=== PATIENT | female | born 1975 | race Caucasian/White ===

== ENCOUNTER 2019-08-25 13:39 | Emergency (ER) | payer OTHER, SELFPAY ==
--- NOTE | ~2019-08-25 | CT_ITS ---
EXAMINATION: CT brain wo con DATE: 08/25/2019 14:38 INDICATION: Drowsy, numbness in lips and cheeks. Loss of bladder control. Foggy feeling. Blurry vis ion. TECHNIQUE: Computed tomography (CT) of the head was performed without intravenous contrast. Sagittal and coronal reconstructions were performed. The mA was adjusted according to patient size. Iterative reconstruction technique was employed. The dose-length product was 605.33 mGy-cm. COMPARISON: None FINDINGS: No acute intracranial hemorrhage, acute infarction or abnormal extra axial fluid collection. Ventricl es are normal and symmetric. No mass/mass effect. The orbits, paranasal sinuses and mastoid air cells are normal. IMPRESSION: 1. Normal head CT. Reviewed, dictated and finalized at location A. IMPRESSION: 1. Normal head CT.
[2019-08-25 13:41] VITALS: BP 137/86; PULSE 110; RESP 19; TEMP 36.7; O2SAT 98
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
[2019-08-25 14:26] LABS: Hematocrit 44.2 % (37.0-47.0); Hemoglobin 14.7 g/dL (12.0-15.0); Mean Corpuscular HGB Conc 33.3 g/dl (32-36); Mean Corpuscular Hemoglobin 31.6 pg (26-34); Mean Corpuscular Volume 95.1 fl (80-100); Platelet Count Result 198 k/mm3 (150-375); Red Blood Count 4.65 M/mm3 (4.2-5.4); Red Cell Distribution Width 13.8 % (11.5-14.5); White Blood Count 12.4 K/mm3 (4.5-10.0)
[2019-08-25 14:31] LABS: INR 0.9; Prothrombin Time 12.2 Seconds (11.1-14.7)
[2019-08-25 14:37] LABS: Alanine Aminotransferase 17 U/L (4-35); Albumin Level 3.7 g/dL (3.5-5.1); Alkaline Phosphatase 70 U/L (38-126); Aspartate Amino Transferase 19 U/L (14-36); Bilirubin,Total 0.2 mg/dL (0.2-1.3); Blood Urea Nitrogen 7 mg/dL (7-17); Carbon Dioxide 19 mmol/L (22-30); Chloride 110 mmol/L (98-107); Estimated Glomerular Filt Rate > 60; Glucose 110 mg/dL (65-105); Potassium 2.8 mmol/L (3.4-5.0); Sodium 138 mmol/L (137-145)
[2019-08-25 14:50] LABS: Add Urine Microscopic? NO; Appearance Urine Clear (Clear); Bilirubin Urine Negative (Negative); Blood Urine Negative (Negative); Color Urine Yellow (Yellow); Glucose Urine UA Negative (Negative); Ketones Urine Negative (Negative); Leukocyte Esterase Ur Negative LEU/UL (Negative); Nitrate Urine Negative (Negative); Protein Urine Negative (Negative); Specific Grav Ur 1.013 (1.001-1.035); Urobilinogen Urine Negative mg/dL (<2.0)
[2019-08-25 15:00] LABS: Platelet Estimate Adequate (Adequate)
[2019-08-25 15:01] LABS: Atypical Lymphocytes Present; Band Neutrophils Percent 1 % (0-6); Lymphocytes Absolute Manual 4.96 K/mm3 (1.1-4.5); Lymphocytes Percent Manual 40 % (18-44); Monocytes Absolute Manual 0.37 K/mm3 (0.1-0.90); Monocytes Percent Manual 3 % (3-9); Neutrophils Absolute Manual 7.06 K/mm3 (1.7-7.2); Neutrophils Percent Manual 56 % (46-73); Total Cells Counted 100
--- NOTE | 2019-08-25 15:01 | ECG_ITS ---
Measurements Intervals [place] Rate: 87 P: 21 NE: 178 QRS: 19 QRSD: 93 T: -4 QT: 342 QTc: 412 Interpretive Statements SINUS RHYTHM INCOMPLETE RIGHT BUNDLE BRANCH BLOCK MINIMAL Q WAVES- HIGH LATERAL LEADS BORDERLINE ST-T WAVE ABNORMALITY- INFERIOR LEADS BORDERLINE ECG Electronically Signed On 08-25-2019 16:05:12 CDT by Eric Espinosa D.O.
[2019-08-25] MEDS: POTASSIUM CHLORIDE 20 MEQ PACKET (FOR LIQUID) 40 MEQ PO (15:05)
[2019-08-25 15:15] LABS: Ethanol < 10 mg/dL (<10)
--- NOTE | 2019-08-25 15:20 | PC.NURSE ---
pt does not like taste of orange potassium solution. md will change to tablets
[2019-08-25] MEDS: POTASSIUM CHLORIDE 20 MEQ TABLET 40 MEQ PO (15:28)
[2019-08-25 16:00] LABS: Amphetamine Screen Urine Negative (Negative); Barbiturate Screen Urine Negative (Negative); Benzodiazepines Screen Urine Negative (Negative); Cannabinoid Screen Urine Negative (Negative); Cocaine Screen Urine Negative (Negative); Methadone Screen Urine Negative (Negative); Opiate Screen Urine Negative (Negative); Phencyclidine Screen Urine Negative (Negative)
[2019-08-25 17:19] LABS: Potassium 3.6 mmol/L (3.4-5.0)
[2019-08-25 17:52] VITALS: BP 127/81; PULSE 95; RESP 16; O2SAT 100
== END 2019-08-25 17:55 | disposition home or self-care (01) ==
PROVIDERS: Emergency Provider Emergency Medicine; PCP Nurse Practitioner Psychiatric/Mental Health
DX: R20.2 Paresthesia of skin (principal); E87.6 Hypokalemia; R94.31 Abnormal electrocardiogram [ECG] [EKG]
CPT/HCPCS: 36415; 70450; 80053; 80307; 81003; 84132; 85025; 85610; 93005; 99284; A9270

== ENCOUNTER 2020-04-16 15:58 | Emergency (ER) | payer OTHER, MEDICAID, SELFPAY ==
--- NOTE | 2020-04-16 16:26 | ED.ALLEREA ---
HPI - Allergic Reaction General Chief complaint: Allergic Reaction Stated complaint: Allergic reaction to meds Time Seen by Provider: 04/16/20 16:26 Source: patient, family and RN notes reviewed Mode of arrival: ambulatory Limitations: no limitations History of Present Illness MD complaint: allergic reaction Known history of allergy to: Patient had her 2nd dose of methotrexate. She had some mild reaction after her 1st dose but the 2nd dose does made her arms extremely pruritic and she has had a significant amount of nausea with some occasional vomiting. She did not take anything at home. She was prescribed the methotrexate from her pastrycook's assistant for rheumatoid arthritis. Symptoms: itching and nausea Severity: severe Treatment prior to arrival: none Previous Allergic Reaction History: none Related Data Home Medications Medication Instructions Recorded Confirmed albuterol sulfate 90 mcg/actuation 1 inh INHALATION Q4H g 03/24/20 03/24/20 aerosol inhaler buspirone 5 mg tablet 5 mg PO BID tablet 03/24/20 03/24/20 fluticasone 250 mcg-salmeterol 50 1 inh INHALATION BID ea 03/24/20 03/24/20 mcg/dose blistr powdr for inhalation folic acid 1 mg tablet 1 mg PO DAILY tablet 03/24/20 03/24/20 methotrexate sodium 2.5 mg tablet 10 mg PO WEEKLY tablet 03/24/20 03/24/20 nortriptyline 50 mg capsule 50 mg PO DAILY cap 03/24/20 03/24/20 duloxetine [Cymbalta] 30 mg PO DAILY 04/16/20 04/16/20 Allergies Allergy/AdvReac Type Severity Reaction Status Date / Time amoxicillin Allergy Rash Verified 03/24/20 14:35 varenicline [From Chantix] AdvReac Intermediate skin Verified 03/24/20 14:35 peeling oxycodone [From Percocet] AdvReac Nausea and Verified 03/24/20 14:35 Vomiting sulfamethoxazole AdvReac Other Verified 03/24/20 14:35 [From Bactrim] trimethoprim [From Bactrim] AdvReac Other Verified 03/24/20 14:35 Review of Systems Review of Systems: All systems reviewed & are unremarkable except as noted in HPI and below ENT: Denies dysphagia Cardiovascular: Cardiovascular: Denies rapid heart rate Respiratory: Respiratory: Reports no additional respiratory complaints and Denies dyspnea PMFSH Past Medical History Medical History (Updated 04/16/20 @ 17:04 by Qasim Juares MD) Fibromyalgia Kidney stones Paresthesia Rheumatoid arthritis Surgical History Surgical History History of hysterectomy History of tonsillectomy Knee joint replacement by other means Social History Social History Smoking status: Current every day smoker Alcohol intake: former Gender identity (if verbalized by the patient): Female Exam Const: General: healthy appearing, no acute distress and alert Nutritional Appearance: well nourished and obese centrally obese Orientation/consciousness: patient oriented x3 HENMT: Head: normal to inspection Ears: external ears normal Eyes: Conjunctivae: conjunctivae normal Pupils: Equal, round and reactive pupils present EOM: EOMs intact bilaterally Neck: Neck: normal visual inspection Resp: Effort & Inspection: normal respiratory effort Auscultation: clear to auscultation bilaterally Cardio: Rate: regular rate Rhythm: regular rhythm GI: GI Palp: Yes Soft to palpation, No Guarding due to palpation present (GI) and No Rebound tenderness present Back/Spine/Pelvis: Cervical Spine: cervical ROM normal Thoracic/Lumbar Spine: thoraco-lumbar ROM normal Skin: General skin exam: normal color Rashes: no rashes Neuro: General: patient oriented x3, moves all extremities and no focal motor deficits Speech: normal speech Gait exam (Neuro): Normal gait present Extrem: General: normal to inspection and no clubbing, cyanosis or edema Psych: Appearance: grossly normal and well kempt Affect: normal affect and Anxious affect present Attitude: cooperative Thought content: Yes Normal
[2020-04-16 16:33] VITALS: BP 123/88; PULSE 96; RESP 18; TEMP 37; O2SAT 97
[2020-04-16] MEDS: diphenhydrAMINE HCl INJ 50 MG/ML VIAL IM (17:01)
[2020-04-16] MEDS: ONDANSETRON HCL ODT 4 MG TABLET PO (17:02)
== END 2020-04-16 17:34 | disposition home or self-care (01) ==
PROVIDERS: Emergency Provider Emergency Medicine; PCP Internal Medicine
DX: T50.905A Adverse effect of unspecified drugs, medicaments and biological substances, initial encounter (principal)
CPT/HCPCS: 96372; 99283; A9270; J1200

== ENCOUNTER 2024-05-11 12:56 | Outpatient (CLI) | payer OTHER, SELFPAY ==
--- OUTSIDE RECORDS SUMMARY | 2024-05-11 14:52 | XMS_ITS | Encounter Summary ---
Author Organization [facility] Address Counts include 234 beds at the [facility] [place] [address] Care Team Providers Care Commodity Supervisor Name Role Phone Bayron Coronado MD Unavailable [phone] Nancy Fournier BUSINESS TEACHER Primary Care Provider Unav ailable Jacobo Richardson MD Primary Care Provider Unava ilable None, Provider Primary Care Provider Unavaila ble None, Provider Primary Care Provider Unavaila ble Ifeanyi Henderson PA-C Primary Care Provider [phone] Genie Saunders AGRICULTURE MANAGER Unavailable [phone] Encounter Details Date Type Department Care Team (Late st Contact Info) Description 01/04/2018 Abstract [facility] Neuroscience [facility] [address] [phone] Victor Manuel Austin MD [address] [place] [id number] Social History Tobacco Use Types Packs/Day Years Used Date Smoking Tobacco: Every Day Cigarettes Smokeless Tobacco: Never Alcohol Use Standard Drinks/Week Comments No 0 (1 standard drink = 0.6 oz pur e alcohol) Comments Unknown Sex and Gender Information Value Date Recorded Sex Assigned at Female 05/09/2018 11:17 AM ASSISTANT PROFESSOR OF ART Legal Sex Female 12:28 PM CDT Gender Identity Female 05/09/2018 11:17 AM ASSISTANT PROFESSOR OF ART Sexual Orientation Straight 05/09/2018 11 :17 AM ASSISTANT PROFESSOR OF ART 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 Not on file Not on file documented as of this encounter Plan of Treatment Not on file documented as of this encounter Visit Diagnoses Not on filedocumented in this encounter Administered Medications Administered Medications Medication Order MAR Action Action Date Dose Rate Site Tuberculin Given 04/02/2007 00:00 ASSISTANT PROFESSOR OF ART Tuberculin Given 03/21/2011 00:00 ASSISTANT PROFESSOR OF ART Tuberculin Given 03/28/2011 00:00 ASSISTANT PROFESSOR OF ART documented in this encounter Additional Health Concerns Infection Onset Date Last Indicated Resolved Time COVID-19 Rule Out 12/18/2019 12/18/2019 12/19/2019 4:21 PM CDT COVID-19 Rule Out 12/28/2019 12/28/2019 12/29/2019 4:01 PM CDT COVID-19 Rule Out 10/23/2020 10/23/2020 01/23/2021 7:39 PM ASSISTANT PROFESSOR OF ART COVID-19 Rule Out 10/23/2020 10/23/2020 01/23/2021 7:40 PM ASSISTANT PROFESSOR OF ART COVID-19 Rule Out 10/24/2020 10/24/2020 10/25/2020 12:47 AM CDT COVID-19 Rule Out 12/11/2021 12/11/2021 12/11/2021 7:27 PM CDT COVID-19 Rule Out 05/07/2022 05/07/2022 05/07/2022 1:49 PM ASSISTANT PROFESSOR OF ART COVID-19 Rule Out 04/19/2023 04/19/2023 04/19/2023 9:15 AM ASSISTANT PROFESSOR OF ART COVID-19 Confirmed 04/19/2023 04/19/2023 12:32 AM CDT COVID-19 Rule Out 03/07/2024 03/07/2024 03/07/2024 3:08 PM ASSISTANT PROFESSOR OF ART documented as of this encounter Care Teams Commodity Supervisor Relationship Specialty Start Date End Date Nancy Fournier NP Three [facility]. [address] [place] [address] PCP - General NURSE PRACTITIONER 05/19/18 03/24/20 Jacobo Richardson MD [facility] [address] [place] [address] PCP - General INTERNAL MEDICINE 03/25/20 07/05/21 None, MD [place] PCP - General 07/06/21 07/06/21 None, MD [place] PCP - General 07/30/21 10/12/21 Ifeanyi Henderson PA-C [address] [place] [address] [address] [place], [place] [id number] PCP - General PHYSICIAN DOOR PULLER 10/13/21 Bayron Coronado MD Three [facility]. [address] [address] [place] [employer] CARDIOVASCULAR DISEASE 08/03/15 Genie Saunders FNP [address] [phone] NURSE PRACTITIONER 03/16/24 documented as of this encounter
--- OUTSIDE RECORDS SUMMARY | 2024-05-11 14:52 | XMS_ITS | Encounter Summary ---
Author Organization [facility] Address [facility] [place] [address] Care Team Providers Care Bisque Brusher Name Role Phone Bayron Coronado MD Unavailable [phone] Nancy Fournier EKG MONITOR Primary Care Provider Unav ailable Jacobo Richardson MD Primary Care Provider Unava ilable None, Provider Primary Care Provider Unavaila ble None, Provider Primary Care Provider Unavaila ble Ifeanyi Henderson PA-C Primary Care Provider [phone] Genie Saunders DOG WARDEN Unavailable [phone] Encounter Details Date Type Department Care Team (Late st Contact Info) Description 11/10/2015 [facility] AT [address] [address] Marina Black MA Social History Tobacco Use Types Packs/Day Years Used Date Smoking Tobacco: Every Day Cigarettes Smokeless Tobacco: Never Alcohol Use Standard Drinks/Week Comments No 0 (1 standard drink = 0.6 oz pur e alcohol) Comments Unknown Sex and Gender Information Value Date Recorded Sex Assigned at Female 05/09/2018 11:17 AM FIG WASHER Legal Sex Female 12:28 PM CDT Gender Identity Female 05/09/2018 11:17 AM FIG WASHER Sexual Orientation Straight 05/09/2018 11 :17 AM FIG WASHER 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 Not on file Not on file documented as of this encounter Plan of Treatment Not on file documented as of this encounter Procedures Procedure Name Priority Date/Time Associated Diagnosis Comments CBC (OUTSIDE LAB) Routine 12/12/2015 COMPREHENSIVE METABOLIC PANEL Routine 12/12/2015 CK (CPK) Routine 12/12/2015 THYROID STIM HORMONE TSH Routine 12/07/2015 CBC (OUTSIDE LAB) Routine 10/29/2015 BASIC METABOLIC PANEL Routine 10/29/2015 LIPID PANEL Routine 03/16/2014 documented in this encounter Results * CK (CPK) (12/12/2015) CPK 43 12/12/2015 us Doc [facility] Abstract LABORATORY Edited Resul t - Final * COMPREHENSIVE METABOLIC PANEL (12/12/2015) SODIUM S/P/B 138 POTASSIUM S/P/B 4.0 CO2 22 CHLORIDE S/P/B 110 GLUCOSE 102 CALCIUM S/P/B 8.5 BUN 5 CREATININE S/P/B 0.83 EGFR NON-AFR. AMER. >60 ALKALINE PHOSPHATASE S/P/B 62 ALT 20 AST 21 BILIRUBIN TOTAL S/P/B 0.3 ALBUMIN S/P/B 3.6 3.5 - 5.0 TOTAL PROTEIN S/P/B 6.3 12/12/2015 us Doc [facility] Abstract LABORATORY Final Result * CBC (OUTSIDE LAB) (12/12/2015) WBC 7.0 HGB 14.3 HCT 41.5 PLT 165 12/12/2015 us Doc [facility] Abstract LAB-OUTSIDE/ABSTRACTED Final Result * THYROID STIM HORMONE, TSH (12/07/2015) TSH 1.29 12/07/2015 us Doc [facility] Abstract LABORATORY Edited Resul t - Final * BASIC METABOLIC PANEL (10/29/2015) SODIUM S/P/B 139 POTASSIUM S/P/B 3.7 CO2 23 CHLORIDE S/P/B 107 GLUCOSE 76 CALCIUM S/P/B 8.9 BUN 8 CREATININE S/P/B 0.97 EGFR NON-AFR. AMER. >60 10/29/2015 us Doc [facility] Abstract LABORATORY Final Result * CBC (OUTSIDE LAB) (10/29/2015) WBC 5.7 HGB 14.0 HCT 41.5 PLT 161 10/29/2015 us Doc [facility] Abstract LAB-OUTSIDE/ABSTRACTED Final Result * LIPID PANEL (03/16/2014) CHOLESTEROL 140 HDL 44 TRIGLYCERIDES 93 LDL (CALCULATED) 77 03/16/2014 us Doc [facility] Abstract LABORATORY Final Result documented in this encounter Visit Diagnoses Not on filedocumented in this encounter Additional Health Concerns Infection Onset Date Last Indicated Resolved Time COVID-19 Rule Out 12/18/2019 12/18/2019 12/19/2019 4:21 PM CDT COVID-19 Rule Out 12/28/2019 12/28/2019 12/29/2019 4:01 PM CDT COVID-19 Rule Out 10/23/2020 10/23/2020 01/23/2021 7:39 PM FIG WASHER COVID-19 Rule Out 10/23/2020 10/23/2020 01/23/2021 7:40 PM FIG WASHER COVID-19 Rule Out 10/24/2020 10/24/2020 10/25/2020 12:47 AM CDT COVID-19 Rule Out 12/11/2021 12/11/2021 12/11/2021 7:27 PM CDT COVID-19 Rule Out 05/07/2022 05/07/2022 05/07/2022 1:49 PM FIG WASHER COVID-19 Rule Out 04/19/2023 04/19/2023 04/19/2023 9:15 AM FIG WASHER COVID-19 Confirmed 04/19/2023 04/19/2023 12:32 AM CDT COVID-19 Rule Out 03/07/2024 03/07/2024 03/07/2024 3:08 PM FIG WASHER documented as of this encounter Care Teams Bisque Brusher Relationship Specialty Start Date End Date Nancy Fournier NP Three [facility]. [address] [address] PCP - General NURSE PRACTITIONER 05/19/18 03/24/20 Jacobo Richardson MD Three [facility]. [address] [address] PCP - General INTERNAL MEDICINE 03/25/20 07/05/21 None, Provider, PCP - General 07/06/21 07/06/21 None, Provider, PCP - General 07/30/21 10/12/21 Ifeanyi Henderson PA-C [address] [place] [address] PCP - General PHYSICIAN TRACTOR CRANE ENGINEER 10/13/21 Bayron Coronado MD Three [facility]. [address] [address] [place] CARDIOVASCULAR DISEASE 08/03/15 Genie Saunders FNP [address] [phone] NURSE PRACTITIONER 03/16/24 documented as of this encounter
--- OUTSIDE RECORDS SUMMARY | 2024-05-11 14:52 | XMS_ITS | Referral Summary ---
Author Organization [facility] Address [address] [place] [address] Care Team Providers Care Stamp Analyst Name Role Phone Dylan Gunter MD, Jacobo Germain Primary Care Provider Allergies Active Allergy Reactions Criticality Noted Date Comments Amoxicillin Rash Reaction: Rash, Baclofen Mental status changes,Dizziness Medium 10/06/2019 Cholecalciferol (Vitamin D3) Mental status changes,Dizziness Medium 10/06/2019 Dexamethasone Mental status changes,Dizziness Medium 10/06/2019 Leflunomide Mental status changes,Dizziness Medium 10/06/2019 Levofloxacin Rash,Redness Medium 06/08/2019 Redness and warmth apparent at IV site within first 10 min of infusion. Redness and warmth apparent at IV site within first 10 min of infusion. Methotrexate Itching Medium 05/06/2020 Oxycodone-Acetaminophen Vomiting Reaction: Vomiting, Propoxyphene-Acetaminophe n Vomiting Reaction: Vomiting, Sulfamethoxazole-Trimetho prim Medications albuterol HFA (PROVENTIL HFA,VENTOLIN HFA,PROAIR HFA) 90 mcg/actuation inhaler INHALE 2 PUFFS BY MOUTH EVERY 4 HOURS NEEDED 03/27/2020 Active biotin 10,000 mcg capsule Take 1 capsule by mouth daily Active hydrOXYzine (ATARAX) 25 mg tablet daily 11/10/2020 Active nicotine (NICODERM CQ) 21 mg APPLY 1 PATCH ONCE DAILY DIRECTED 08/18/2020 Active Wixela Inhub 500-50 mcg/dose diskus inhaler 11/14/2020 Acti ve hydrOXYchloroQU INE (PLAQUENIL) 200 mg tablet Take 200 mg by mouth daily 03/06/2021 Active sertraline (ZOLOFT) 50 mg tablet Take 50 mg by mouth daily Active QUEtiapine (SEROquel) 100 mg tablet Take 100 mg by mouth nightly Active alpha lipoic acid 600 mg capsule Take 1 capsule (600 mcg total) by mouth 2 (two) times a day 60 capsule 3 05/23/2021 Active busPIRone (BUSPAR) 10 mg tablet Take 10 mg by mouth 3 (three) times a day 07/06/[address] (CYMBALTA) 60 mg capsule Take by mouth daily 06/19/2021 Active sertraline (ZOLOFT) 100 mg tablet Take 100 mg by mouth daily 07/26/2021 Active topiramate (TOPAMAX) 100 mg tablet TAKE 1 TABLET BY MOUTH TWICE A DAY-NEEDS APPT 07/26/2021 Active pregabalin (LYRICA) 100 mg capsule Take 1 capsule (100 mg total) by mouth 2 (two) times a day 60 capsule 3 08/13/2021 Active Active Problems Problem Noted Date Diagnosed Date Small fiber neuropathy 07/05/2020 Positive antinuclear antibody 04/24/2016 Fibromyalgia 04/24/2016 Hidradenitis suppurativa 02/09/2010 Nicotine dependence 11/23/2009 Carbuncle of axilla 11/01/2009 Immunizations Immunization Administration Dates Next Due PPD TEST 11/14/2009 Social History Tobacco Use Types Packs/Day Years Used Date Smoking Tobacco: Every Day Cigarettes 0.1 30 Smokeless Tobacco: Never Tobacco Cessation:Ready to Q uit: Yes; Counseling Given: Yes AUDIT-C Answer Date Recorded Q1: How often do you have a drink containing alcohol? Never 08/08/2021 Q2: How many drinks containi ng alcohol do you have on a typical day when you are drinking? Patient does not drink Q3: How often do you have si x or more drinks on one occasion? Never 08/08/2021 Comments No Sex and Gender Information Value Date Recorded Sex Assigned at Not on file Legal Sex Female 5:19 AM SLIMER Gender Identity Female 08/10/2021 3:51 PM CDT Sexual Orientation Straight 08/10/2021 3: 51 PM CDT Last Filed Vital Signs Vital Sign Reading Time Taken Comments Blood Pressure 130/78 03/17/2021 12:37 PM SLIMER Pulse 90 03/17/2021 12:37 PM SLIMER Temperature 36.6 C (97.8 F) 03/17/2021 10:18 AM SLIMER Respiratory Rate 22 03/17/2021 12:37 PM SLIMER Oxygen Saturation 100% 03/17/2021 12:37 PM SLIMER Inhaled Oxygen Concentration - - Weight 100.5 kg (221 lb 8 oz) 03/17/2021 10:18 A M SLIMER Height 167.6 cm (5' 6 ) 03/17/2021 10:18 AM SLIMER Body Mass Index 35.75 03/17/2021 10:18 AM SLIMER Plan of Treatment Not on file Goals Goal Patient Goal Type Associated Problems Recent Progress Patient-Stated? Author CCM Chronic Pain Care Plan Chronic Care Management No change(08/08 7:19 AM CDT) No Colleen Esteban RN Note: Problem: Chronic Pain Goals: 1. Minimize further functional decline 2. Maximize quality of life 3. Control pain Strategies: - Activity/exercise program recommendation - Conservative stepwise pain medicine strategy with multi-disciplinary approach - Recommend healthy lifestyle strategies and compensatory methods as needed Insurance [facility] Care Teams Stamp Analyst Relationship Specialty Start Date End Date Jacobo Richardson Jr., MD [address] [place] [id number] PCP - General Geriatric Medicine 05/05/20
--- OUTSIDE RECORDS SUMMARY | 2024-05-11 14:52 | XMS_ITS | Encounter Summary ---
Author Organization [facility] System Address [facility] [place] [address] Care Team Providers Care Hogshead Stripper Name Role Phone Bayron Coronado MD Unavailable [phone] Nancy Fournier CAMPUS WELLNESS COORDINATOR Primary Care Provider Unav ailable Jacobo Richardson MD Primary Care Provider Unava ilable None, Provider Primary Care Provider Unavaila ble None, Provider Primary Care Provider Unavaila ble Ifeanyi Henderson PA-C Primary Care Provider [phone] Genie Saunders MANAGER FLIGHT Unavailable [phone] Encounter Details Date Type Department Care Team (Late st Contact Info) Description 09/21/2016 Abstract [facility] AT [address] [address] Marnia Black MA Social History Tobacco Use Types Packs/Day Years Used Date Smoking Tobacco: Every Day Cigarettes Smokeless Tobacco: Never Alcohol Use Standard Drinks/Week Comments No 0 (1 standard drink = 0.6 oz pur e alcohol) Comments Unknown Sex and Gender Information Value Date Recorded Sex Assigned at Female 05/09/2018 11:17 AM COMMISSION AGENT LIVESTOCK Legal Sex Female 12:28 PM CDT Gender Identity Female 05/09/2018 11:17 AM COMMISSION AGENT LIVESTOCK Sexual Orientation Straight 05/09/2018 11 :17 AM COMMISSION AGENT LIVESTOCK 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 Not on file Not on file documented as of this encounter Plan of Treatment Not on file documented as of this encounter Procedures Procedure Name Priority Date/Time Associated Diagnosis Comments CBC (OUTSIDE LAB) Routine 09/18/2016 COMPREHENSIVE METABOLIC PANEL Routine 09/18/2016 CK (CPK) Routine 09/18/2016 documented in this encounter Results * CK (CPK) (09/18/2016) CPK 139 09/18/2016 us Doc [facility] Abstract LABORATORY Final Result * COMPREHENSIVE METABOLIC PANEL (09/18/2016) SODIUM S/P/B 141 POTASSIUM S/P/B 3.8 CO2 25 CHLORIDE S/P/B 109 GLUCOSE 89 CALCIUM S/P/B 8.8 BUN 6 CREATININE S/P/B 0.82 0.5 - 1.0 EGFR NON-AFR. AMER. >60 <=90 ALKALINE PHOSPHATASE S/P/B 68 ALT 14 AST 16 BILIRUBIN TOTAL S/P/B 0.5 ALBUMIN S/P/B 3.7 3.5 - 5.0 TOTAL PROTEIN S/P/B 6.9 09/18/2016 us Doc [facility] Abstract LABORATORY Final Result * CBC (OUTSIDE LAB) (09/18/2016) WBC 10.6 HGB 15.4 HCT 43.5 PLT 190 09/18/2016 us Doc [facility] Abstract LAB-OUTSIDE/ABSTRACTED Edite d Result - Final documented in this encounter Visit Diagnoses Not on filedocumented in this encounter Additional Health Concerns Infection Onset Date Last Indicated Resolved Time COVID-19 Rule Out 12/18/2019 12/18/2019 12/19/2019 4:21 PM CDT COVID-19 Rule Out 12/28/2019 12/28/2019 12/29/2019 4:01 PM CDT COVID-19 Rule Out 10/23/2020 10/23/2020 01/23/2021 7:39 PM COMMISSION AGENT LIVESTOCK COVID-19 Rule Out 10/23/2020 10/23/2020 01/23/2021 7:40 PM COMMISSION AGENT LIVESTOCK COVID-19 Rule Out 10/24/2020 10/24/2020 10/25/2020 12:47 AM CDT COVID-19 Rule Out 12/11/2021 12/11/2021 12/11/2021 7:27 PM CDT COVID-19 Rule Out 05/07/2022 05/07/2022 05/07/2022 1:49 PM COMMISSION AGENT LIVESTOCK COVID-19 Rule Out 04/19/2023 04/19/2023 04/19/2023 9:15 AM COMMISSION AGENT LIVESTOCK COVID-19 Confirmed 04/19/2023 04/19/2023 12:32 AM CDT COVID-19 Rule Out 03/07/2024 03/07/2024 03/07/2024 3:08 PM COMMISSION AGENT LIVESTOCK documented as of this encounter Care Teams Hogshead Stripper Relationship Specialty Start Date End Date Nancy Fournier NP [facility]. [address] [address] PCP - General NURSE PRACTITIONER 05/19/18 03/24/20 Jacobo Richardson MD Three [facility]. [facility] [address] [place] [address] PCP - General INTERNAL MEDICINE 03/25/20 07/05/21 None, Provider, PCP - General 07/06/21 07/06/21 None, Provider, PCP - General 07/30/21 10/12/21 Ifeanyi Henderson PA-C [facility] [place] [address] PCP - General PHYSICIAN CIS COORDINATOR 10/13/21 Bayron Coronado MD [facility]. [facility] [address] [place] [address] [place] Doffer CARDIOVASCULAR DISEASE 08/03/15 Genie Saunders FNP [address] [id number] NURSE PRACTITIONER 03/16/24 documented as of this encounter
--- OUTSIDE RECORDS SUMMARY | 2024-05-11 14:52 | XMS_ITS | Encounter Summary ---
Author Organization [facility] System Address [facility] [place] [address] Care Team Providers Care Elevator Repairer Helper Name Role Phone Bayron Coronado MD Unavailable [phone] Nancy Fournier MAINTENANCE ENGINEER OIL FIELD Primary Care Provider Unav ailable Jacobo Richardson MD Primary Care Provider Unava ilable None, Provider Primary Care Provider Unavaila ble None, Provider Primary Care Provider Unavaila ble Ifeanyi Henderson PA-C Primary Care Provider [phone] Genie Saunders BIOLOGY PROFESSOR Unavailable [phone] Encounter Details Date Type Department Care Team (Late st Contact Info) Description 07/31/2016 Abstract [facility] CONVERSION [address] [address] , Generic Conversion, Social History Tobacco Use Types Packs/Day Years Used Date Smoking Tobacco: Every Day Cigarettes Smokeless Tobacco: Never Alcohol Use Standard Drinks/Week Comments No 0 (1 standard drink = 0.6 oz pur e alcohol) Comments Unknown Sex and Gender Information Value Date Recorded Sex Assigned at Female 05/09/2018 11:17 AM CAPSULE MACHINE OPERATOR Legal Sex Female 12:28 PM CDT Gender Identity Female 05/09/2018 11:17 AM CAPSULE MACHINE OPERATOR Sexual Orientation Straight 05/09/2018 11 :17 AM CAPSULE MACHINE OPERATOR Occupation Industry Job Start Date Job End [...] Rule Out 10/23/2020 10/23/2020 01/23/2021 7:39 PM CAPSULE MACHINE OPERATOR COVID-19 Rule Out 10/23/2020 10/23/2020 01/23/2021 7:40 PM CAPSULE MACHINE OPERATOR COVID-19 Rule Out 10/24/2020 10/24/2020 10/25/2020 12:47 AM CDT COVID-19 Rule Out 12/11/2021 12/11/2021 12/11/2021 7:27 PM CDT COVID-19 Rule Out 05/07/2022 05/07/2022 05/07/2022 1:49 PM CAPSULE MACHINE OPERATOR COVID-19 Rule Out 04/19/2023 04/19/2023 04/19/2023 9:15 AM CAPSULE MACHINE OPERATOR COVID-19 Confirmed 04/19/2023 04/19/2023 12:32 AM CDT COVID-19 Rule Out 03/07/2024 03/07/2024 03/07/2024 3:08 PM CAPSULE MACHINE OPERATOR documented as of this encounter Care Teams Elevator Repairer Helper Relationship Specialty Start Date End Date Nancy Fournier NP [address] [address] PCP - General NURSE PRACTITIONER 05/19/18 03/24/20 Jacobo Richardson MD [address] [address] PCP - General INTERNAL MEDICINE 03/25/20 07/05/21 None, Provider, PCP - General 07/06/21 07/06/21 None, Provider, PCP - General 07/30/21 10/12/21 Ifeanyi Henderson PA-C [address] [place] [address] PCP - General PHYSICIAN WATER TAXI BOAT MATE 10/13/21 Bayron Coronado MD [facility]. [address] [place] [address] [place] Grinder Operator CARDIOVASCULAR DISEASE 08/03/15 Genie Saunders FNP [address] [facility] [address] [place] [address] NURSE PRACTITIONER 03/16/24 documented as of this encounter
--- OUTSIDE RECORDS SUMMARY | 2024-05-11 14:52 | XMS_ITS | Encounter Summary ---
Author Organization [facility] System Address [facility] [place] [address] Care Team Providers Care Lining Stuffer Name Role Phone Bayron Coronado MD Unavailable [phone] Nancy Fournier PUMPER GAGER APPRENTICE Primary Care Provider Unav ailable Jacobo Richardson MD Primary Care Provider Unava ilable None, Provider Primary Care Provider Unavaila ble None, Provider Primary Care Provider Unavaila ble Ifeanyi Henderson PA-C Primary Care Provider [phone] Genie Saunders RECYCLABLE PRODUCTS SORTER Unavailable [phone] Encounter Details Date Type Department Care Team (Late st Contact Info) Description 11/19/2019 Personal Capital Message Enc [facility] Family & Internal Medicine [address] [address] Scientific Intake, [facility] Provider Medication Information Social History Tobacco Use Types Packs/Day Years Used Date Smoking Tobacco: Every Day Cigarettes 1 15 Smokeless Tobacco: Never Comments:Verbalized understa nding of smoking cessation. Recommended she quit. 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 No / Unsure 11/16/2019 8:37 AM CDT documented as of this encounter Plan of Treatment Not on file documented as of this encounter Visit Diagnoses Not on filedocumented in this encounter Additional Health Concerns Infection Onset Date Last Indicated Resolved Time COVID-19 Rule Out 12/18/2019 12/18/2019 12/19/2019 4:21 PM CDT COVID-19 Rule Out 12/28/2019 12/28/2019 12/29/2019 4:01 PM CDT COVID-19 Rule Out 10/23/2020 10/23/2020 01/23/2021 7:39 PM LOAN OPERATIONS MANAGER COVID-19 Rule Out 10/23/2020 10/23/2020 01/23/2021 7:40 PM LOAN OPERATIONS MANAGER COVID-19 Rule Out 10/24/2020 10/24/2020 10/25/2020 12:47 AM CDT COVID-19 Rule Out 12/11/2021 12/11/2021 12/11/2021 7:27 PM CDT COVID-19 Rule Out 05/07/2022 05/07/2022 05/07/2022 1:49 PM LOAN OPERATIONS MANAGER COVID-19 Rule Out 04/19/2023 04/19/2023 04/19/2023 9:15 AM LOAN OPERATIONS MANAGER COVID-19 Confirmed 04/19/2023 04/19/2023 12:32 AM CDT COVID-19 Rule Out 03/07/2024 03/07/2024 03/07/2024 3:08 PM LOAN OPERATIONS MANAGER documented as of this encounter Care Teams Lining Stuffer Relationship Specialty Start Date End Date Nancy Fournier NP Three [facility]. [facility] [address] [place] [address] PCP - General NURSE PRACTITIONER 05/19/18 03/24/20 Jacobo Richardson MD Three [facility]. [address] [place] [address] PCP - General INTERNAL MEDICINE 03/25/20 07/05/21 None, Provider, PCP - General 07/06/21 07/06/21 None, Provider, MD PCP - General 07/30/21 10/12/21 Ifeanyi Henderson PA-C [address] [place] [address] PCP - General PHYSICIAN WELT RANDER 10/13/21 Bayron Coronado MD [address] [address] [place] Truck Supervisor CARDIOVASCULAR DISEASE 08/03/15 Genie Saunders FNP [address] [address] NURSE PRACTITIONER 03/16/24 documented as of this encounter
--- OUTSIDE RECORDS SUMMARY | 2024-05-11 14:52 | XMS_ITS | Encounter Summary ---
Author Organization [facility] Address [facility] [place] [address] Care Team Providers Care Practice Office Associate Name Role Phone Bayron Coronado MD Unavailable [phone] Nancy Fournier CHIEF MEDICAL DIRECTOR Primary Care Provider Unav ailable Jacobo Richardson MD Primary Care Provider Unava ilable None, Provider Primary Care Provider Unavaila ble None, Provider Primary Care Provider Unavaila ble Ifeanyi Henderson PA-C Primary Care Provider [phone] Genie Saunders CIGARETTE MAKING EXAMINER Unavailable [phone] Encounter Details Date Type Department Care Team (Late st Contact Info) Description 07/15/2014 Abstract [facility] CONVERSION [address] [place] [address] , Generic Conversion, Social History Tobacco Use Types Packs/Day Years Used Date Smoking Tobacco: Never Assessed Comments Unknown Sex and Gender Information Value Date Recorded Sex Assigned at Female 05/09/2018 11:17 AM SITE MANAGER Legal Sex Female 12:28 PM CDT Gender Identity Female 05/09/2018 11:17 AM SITE MANAGER Sexual Orientation Straight 05/09/2018 11 :17 AM SITE MANAGER documented as of this encounter Plan of Treatment Not on file documented as of this encounter Visit Diagnoses Not on filedocumented in this encounter Additional Health Concerns Infection Onset Date Last Indicated Resolved Time COVID-19 Rule Out 12/18/2019 12/18/2019 12/19/2019 4:21 PM CDT COVID-19 Rule Out 12/28/2019 12/28/2019 12/29/2019 4:01 PM CDT COVID-19 Rule Out 10/23/2020 10/23/2020 01/23/2021 7:39 PM SITE MANAGER COVID-19 Rule Out 10/23/2020 10/23/2020 01/23/2021 7:40 PM SITE MANAGER COVID-19 Rule Out 10/24/2020 10/24/2020 10/25/2020 12:47 AM CDT COVID-19 Rule Out 12/11/2021 12/11/2021 12/11/2021 7:27 PM CDT COVID-19 Rule Out 05/07/2022 05/07/2022 05/07/2022 1:49 PM SITE MANAGER COVID-19 Rule Out 04/19/2023 04/19/2023 04/19/2023 9:15 AM SITE MANAGER COVID-19 Confirmed 04/19/2023 04/19/2023 12:32 AM CDT COVID-19 Rule Out 03/07/2024 03/07/2024 03/07/2024 3:08 PM SITE MANAGER documented as of this encounter Care Teams Practice Office Associate Relationship Specialty Start Date End Date Nancy Fournier NP [facility]. [address] [address] PCP - General NURSE PRACTITIONER 05/19/18 03/24/20 Jacobo Richardson MD [facility]. [facility] [address] [place] [address] PCP - General INTERNAL MEDICINE 03/25/20 07/05/21 None, Provider, PCP - General 07/06/21 07/06/21 None, Provider, PCP - General 07/30/21 10/12/21 Ifeanyi Henderson PA-C [address] [place] [address] PCP - General PHYSICIAN RETAIL OPERATIONS SPECIALIST 10/13/21 Bayron Coronado MD [facility]. [facility] [address] [place] [address] Wing[place] Gardener CARDIOVASCULAR DISEASE 08/03/15 Genie Saunders FNP [address] [address] NURSE PRACTITIONER 03/16/24 documented as of this encounter
--- OUTSIDE RECORDS SUMMARY | 2024-05-11 14:52 | XMS_ITS | Encounter Summary ---
Author Organization [facility] Address [facility] [place] [address] Care Team Providers Care Sausage Mixer Name Role Phone Bayron Coronado MD Unavailable [phone] Nancy Fournier PIE DOUGH ROLLER Primary Care Provider Unav ailable Jacobo Richardson MD Primary Care Provider Unava ilable None, Provider Primary Care Provider Unavaila ble None, Provider Primary Care Provider Unavaila ble Ifeanyi Henderson PA-C Primary Care Provider [phone] Genie Saunders LOCK PLATER Unavailable [phone] Encounter Details Date Type Department Care Team (Late st Contact Info) Description 05/18/2017 Abstract [facility] CONVERSION [address] [place] [address] , Generic Conversion, Social History Tobacco Use Types Packs/Day Years Used Date Smoking Tobacco: Every Day Cigarettes Smokeless Tobacco: Never Alcohol Use Standard Drinks/Week Comments No 0 (1 standard drink = 0.6 oz pur e alcohol) Comments Unknown Sex and Gender Information Value Date Recorded Sex Assigned at Female 05/09/2018 11:17 AM PROPOSAL MANAGER Legal Sex Female 12:28 PM CDT Gender Identity Female 05/09/2018 11:17 AM PROPOSAL MANAGER Sexual Orientation Straight 05/09/2018 11 :17 AM PROPOSAL MANAGER Occupation Industry Job Start Date Job [...] Rule Out 10/23/2020 10/23/2020 01/23/2021 7:39 PM PROPOSAL MANAGER COVID-19 Rule Out 10/23/2020 10/23/2020 01/23/2021 7:40 PM PROPOSAL MANAGER COVID-19 Rule Out 10/24/2020 10/24/2020 10/25/2020 12:47 AM CDT COVID-19 Rule Out 12/11/2021 12/11/2021 12/11/2021 7:27 PM CDT COVID-19 Rule Out 05/07/2022 05/07/2022 05/07/2022 1:49 PM PROPOSAL MANAGER COVID-19 Rule Out 04/19/2023 04/19/2023 04/19/2023 9:15 AM PROPOSAL MANAGER COVID-19 Confirmed 04/19/2023 04/19/2023 12:32 AM CDT COVID-19 Rule Out 03/07/2024 03/07/2024 03/07/2024 3:08 PM PROPOSAL MANAGER documented as of this encounter Care Teams Sausage Mixer Relationship Specialty Start Date End Date Nancy Fournier NP [address] [address] PCP - General NURSE PRACTITIONER 05/19/18 03/24/20 Jacobo Richardson MD [address] [address] PCP - General INTERNAL MEDICINE 03/25/20 07/05/21 None, Provider, PCP - General 07/06/21 07/06/21 None, Provider, PCP - General 07/30/21 10/12/21 Ifeanyi Henderson PA-C [address] [place] [address] PCP - General PHYSICIAN SUPERVISOR EDGING 10/13/21 Bayron Coronado MD [facility]. [place] [place] [address] [place] Aircraft Charter Dispatcher CARDIOVASCULAR DISEASE 08/03/15 Genie Saunders FNP [address] [facility] [address] [place] [phone] NURSE PRACTITIONER 03/16/24 documented as of this encounter
--- OUTSIDE RECORDS SUMMARY | 2024-05-11 14:52 | XMS_ITS | Encounter Summary ---
Author Organization [facility] Address [facility] [place] [address] Care Team Providers Care Type Caster Name Role Phone Bayron Coronado MD Unavailable [phone] Nancy Fournier SOFTWARE CLIENT ARCHITECT Primary Care Provider Unav ailable Jacobo Richardson MD Primary Care Provider Unava ilable None, Provider Primary Care Provider Unavaila ble None, Provider Primary Care Provider Unavaila ble Ifeanyi Henderson PA-C Primary Care Provider [phone] Genie Saunders MICROBIOLOGY TEACHER Unavailable [phone] Encounter Details Date Type Department Care Team (Late st Contact Info) Description 05/14/2013 Abstract [facility] Conversion Md, Generic Conversion, Social History Tobacco Use Types Packs/Day Years Used Date Smoking Tobacco: Never Assessed Comments Unknown Sex and Gender Information Value Date Recorded Sex Assigned at Female 05/09/2018 11:17 AM MACHINE HOOP MAKER Legal Sex Female 12:28 PM CDT Gender Identity Female 05/09/2018 11:17 AM MACHINE HOOP MAKER Sexual Orientation Straight 05/09/2018 11 :17 AM MACHINE HOOP MAKER documented as of this encounter Plan of Treatment Not on file documented as of this encounter Visit Diagnoses Not on filedocumented in this encounter Additional Health Concerns Infection Onset Date Last Indicated Resolved Time COVID-19 Rule Out 12/18/2019 12/18/2019 12/19/2019 4:21 PM CDT COVID-19 Rule Out 12/28/2019 12/28/2019 12/29/2019 4:01 PM CDT COVID-19 Rule Out 10/23/2020 10/23/2020 01/23/2021 7:39 PM MACHINE HOOP MAKER COVID-19 Rule Out 10/23/2020 10/23/2020 01/23/2021 7:40 PM MACHINE HOOP MAKER COVID-19 Rule Out 10/24/2020 10/24/2020 10/25/2020 12:47 AM CDT COVID-19 Rule Out 12/11/2021 12/11/2021 12/11/2021 7:27 PM CDT COVID-19 Rule Out 05/07/2022 05/07/2022 05/07/2022 1:49 PM MACHINE HOOP MAKER COVID-19 Rule Out 04/19/2023 04/19/2023 04/19/2023 9:15 AM MACHINE HOOP MAKER COVID-19 Confirmed 04/19/2023 04/19/2023 12:32 AM CDT COVID-19 Rule Out 03/07/2024 03/07/2024 03/07/2024 3:08 PM MACHINE HOOP MAKER documented as of this encounter Care Teams Type Caster Relationship Specialty Start Date End Date Nancy Fournier NP [address] [address] PCP - General NURSE PRACTITIONER 05/19/18 03/24/20 Jacobo Richardson MD [address] [address] PCP - General INTERNAL MEDICINE 03/25/20 07/05/21 None, Provider, PCP - General 07/06/21 07/06/21 None, Provider, PCP - General 07/30/21 10/12/21 Ifeanyi Henderson PA-C [address] [place] [address] PCP - General PHYSICIAN NATIONAL ACCOUNT REPRESENTATIVE 10/13/21 Bayron Coronado MD [address] [address] [place] Mobile Sales Technician CARDIOVASCULAR DISEASE 08/03/15 Genie Saunders FNP [address] [address] NURSE PRACTITIONER 03/16/24 documented as of this encounter
--- OUTSIDE RECORDS SUMMARY | 2024-05-11 14:52 | XMS_ITS | Clinical Summary ---
Author Organization [facility] Stream[employer] Address [address] [place] [address] Care Team Providers Care Photogrammetry Airplane Pilot Name Role Phone Ifeanyi Henderson PA-C Primary Care Provider [phone] Source Comments [facility],non-owned Affiliates and Associated Physician Practices is amultiple site organization consisting of ambulatory clinics and hospital sitesin [place], [place], [place] and [place]. This disclosure is being madepursuant to the Care Everywhere program and may not contain all information available regarding this patient. Last updated 17.[facility] Allergies Active Allergy Reactions Criticality Noted Date Comments Amoxicillin Rash Medium 02/13/2005 Other reaction(s): yeast Reaction: Rash, Baclofen Dizziness,Psychiatr ic Medium 10/06/2019 Sulfamethoxazole W-Trimethoprim Vomiting Medium 07/22/2019 Carbamazepine Rash Medium 05/27/2023 Varenicline Skin Reactions 11/25/2019 Skin peeling Cholecalciferol Dizziness,Psychiatr ic Medium 10/06/2019 Dexamethasone Dizziness,Psychiatr ic Medium 10/06/2019 Leflunomide Dizziness,Psychiatr ic Medium 10/06/2019 Levofloxacin Rash Medium 06/08/2019 Redness and warmth apparent at IV site within first 10 min of infusion. Redness and warmth apparent at IV site within first 10 min of infusion. Methotrexate (Anti-Rheumatic) Itching Medium 05/06/2020 Oxycodone-Acetaminophen Other,Vomiting High 05/27/19 15 Reaction: Vomiting, vomit Medications * Be aware that medications may not be up to date on this document. Alwaysverify current medications with the patient. Medication Sig Dispensed Refills Start Date End Date Status albuterol (PROVENTIL;VENTOL IN) (2.5 MG/3ML) 0.083% nebulizer solution 06/22/2020 Active verapamil (Isoptin) 40 MG tablet 12/22/2021 Active Rexulti 3 MG tablet 07/21/2023 Active cloNIDine (Catapres) 0.1 MG tablet TAKE 1-2 TABLET BY MOUTH EVERY DAY AT BEDTIME FOR 30 DAYS 07/15/2023 Active mirabegron ER 24hr (Myrbetriq) 50 MG tablet Take 1 (one) tablet by mouth once daily 90 tablet 10/18/2023 Active Dupixent 300 MG/2ML prefilled pen 12/26/2023 Active metFORMIN ER 24hr (Glucophage XR) 500 MG tablet TAKE 1 TABLET BY MOUTH EVERY DAY WITH EVENING MEAL 10/29/2023 Active SUMAtriptan (Imitrex) 50 MG tablet TAKE 1 TABLET WITH ONSET OF HEADACHE, MAY REPEAT DOSE X1 AFTER 2 HOURS IF NO RELIEF 12/13/2023 Active venlafaxine (Effexor) 37.5 MG tablet TAKE 1 TABLET BY MOUTH EVERY DAY FOR 30 DAYS 12/23/2023 Active methenamine hippurate (Hiprex) 1 GM tablet Take 1 (one) tablet by mouth 2 times daily 60 tablet 5 03/02/2024 Active ascorbic acid (Vitamin C) 500 MG tablet Take 1 (one) tablet by mouth 2 times daily 60 tablet 5 03/02/2024 Active secukinumab (Cosentyx UnoReady) 300 MG/2ML SOAJ penIndications:Ps oriatic arthritis (HCC) Inject 300 (three hundred) mg subcutaneously every 28 days Maintenance dosing 2 mL 5 03/23/2024 Active tiZANidine (Zanaflex) 4 MG tabletIndications :Polyarthralgia,M uscle spasm TAKE 2 TABLETS BY MOUTH AT BEDTIME 60 tablet 2 03/26/2024 Active tolterodine ER 24hr (Detrol LA) 4 MG capsule Take 1 (one) capsule by mouth once daily 90 capsule 4 04/06/2024 Active Active Problems Problem Noted Date Diagnosed Date Rheumatoid arthritis of mult iple sites with negative rheumatoid factor 06/05/2021 Sjogren's syndrome 06/05/2021 Small fiber neuropathy 05/31/2020 Lumbar radiculopathy 06/03/2018 Chronic migraine without aur a, intractable, without status migrainosus 03/06/2018 Numbness on left side 12/24/2017 Coarse tremors 12/04/2017 Persistent insomnia 10/07/2017 Trigeminal neuralgia 08/15/2017 Dysphagia 08/12/2017 Lower extremity weakness 08/12/2017 Paresthesia of both hands 07/03/2017 Ulnar nerve abnormality 08/07/2016 Migraine headache 05/12/2016 Fibromyalgia 04/24/2016 Easy bruising 12/07/2015 Tobacco use 11/13/2015 Fibrocystic breast disease (FCBD) 07/24/2015 Asthma 06/06/2015 Emphysema, unspecified 04/08/2015 Overview (07/30/2023): Transitioned From: COPD with acute exacerbation Pulmonary nodule 09/23/2014 Anxiety 08/05/2014 Eustachian tube dysfunction 08/05/2014 Overview (07/30/2023): Date Onset: 08/05/2014 Depressive disorder 11/24/2012 Hidradenitis suppurativa 02/09/2010 Nicotine dependence 11/23/2009 Encounters Date Type Department Care Team Description 04/06/2024 Orders Only [facility] - Urology [address] [place] [address] [address] [place] [address] Gracie Valle APRN-BEATIRCE 03/26/2024 Refill [facility] - Rheumatology [address] [place] [address], [address] [place] [address] Lucia Bliss MD Refill Request 03/17/2024 Refill [facility] - Rheumatology [address] [facility], [address] [place] [address] Lucia Bliss MD Medication Prior Auth Request 03/02/2024 9:30 AM MAJOR GENERAL Office Visit [facility] - Urology [address] [place] [address] [address] [place] [address] Gracie Valle, CHANGER FIXER-NATURAL GAS FIELD PROCESSING SUPERVISOR Recurrent UTI (Primary Dx); Mixed stress and urge urinary incontinence; Urinary urgency 03/02/2024 Travel from Last 3 Months Family History Medical History Relation Name Comments None Known Father None Known Mother Adopted Relation Name Status Comments Father Other Mother Other Social History Tobacco Use Types Packs/Day Years Used Date Smoking Tobacco: Every Day Cigarettes Smokeless Tobacco: Never Tobacco Cessation:Ready to Q uit: Not Asked; Counseling Given: Not Answered Alcohol Use Standard Drinks/Week Comments Not Currently 0 (1 standard drink = 0.6 oz pur e alcohol) PHQ-2 Answer Date Recorded Patient Health Questionnaire-2 Score 0 07/02/2023 Sex and Gender Information Value Date Recorded Sex Assigned at Female 11/28/2020 8:33 AM CDT Gender Identity Female 11/28/2020 8:33 AM CDT Sexual Orientation Straight 11/28/2020 8: 33 AM CDT Last Filed Vital Signs Vital Sign Reading Time Taken Comments Blood Pressure 120/81 03/02/2024 9:00 AM MAJOR GENERAL Pulse 67 03/02/2024 9:00 AM MAJOR GENERAL Temperature 36.8 C (98.2 F) 03/02/2024 9:00 AM MAJOR GENERAL Respiratory Rate 16 07/02/2023 8:50 AM CDT Oxygen Saturation 97% 03/02/2024 9:00 AM MAJOR GENERAL Inhaled Oxygen Concentration - - Weight 116.9 kg (257 lb 12.8 oz) 03/02/2024 9:00 AM MAJOR GENERAL Height 167.6 cm (5' 6 ) 03/02/2024 9:00 AM MAJOR GENERAL Body Mass Index 41.61 03/02/2024 9:00 AM MAJOR GENERAL Plan of Treatment Upcoming Encounters Date Type Department Care Team (Late st Contact Info) Description 06/01/2024 9:30 AM CDT Office Visit [facility] - Urology [address] [place] [address] [address] [place] [address] Gracie Valle, CHANGER FIXER-NATURAL GAS FIELD PROCESSING SUPERVISOR [address] [facility] DEPT [place] [address] Health Maintenance Due Date Last Done Comments COLOGUARD (AGES 45-75) - COLON CA SCREENING 1977 COLON MONITORING 1977 COLONOSCOPY - COLON CA SCREENING 1977 CT COLONOGRAPHY - COLON CA SCREENING 1977 Colorectal Cancer Screening 1977 FIT - COLON CA SCREENING 1977 FLEX SIG - COLON CA SCREENING 1977 PAP SMEAR 1977 HIV SCREENING 1992 DTAP/TDAP/TD VACCINES (1 - Tdap) 1996 HEPATITIS B VACCINE (1 of 3 - 19+ 3-dose series) 1996 PNEUMOCOCCAL VACCINE (1 of 2 - PCV) 1996 COVID-19 VACCINE (2 - season) 2023 10/18/2020 INFLUENZA VACCINE (#1) 2023 0, 12/02/2014, 02/05/2012, Additional history exists DEPRESSION SCREENING 03/04/2024 05/21/2023, 10/11/2022, 10/30/2021 MAMMOGRAM 09/17/2025 09/18/2023, 09/01, 12/04/2018, Additional history exists SCREENING FOR DIABETES 02/15/2026 3, 07/17/2022, 10/30/2021, Additional history exists LIPID TESTING 03/06/2026 03/06/2021 ZOSTER VACCINE (1 of 2) 2027 HEPATITIS C SCREENING Completed 07/17/2022, 021 HIB VACCINE Aged Out No longer eligi ble based on patient's age to complete this topic HPV VACCINE Aged Out No longer eligi ble based on patient's age to complete this topic MENINGOCOCCAL (Group B) VACCINE Aged Out No longer eligible based on patient's age to complete this topic MENINGOCOCCAL VACCINE Aged Out No mona joy eligible based on patient's age to complete this topic Procedures Procedure Name Priority Date/Time Associated Diagnosis Comments COMPREHENSIVE METABOLIC PANEL Routine 02/15/2023 8:25 AM MAJOR GENERAL Rheumatoid arthritis of multiple sites with negative rheumatoid factor (HCC) HEPATITIS SCREEN ACUTE Routine 07/17/2022 Rheumatoid arthritis of multiple sites with negative rheumatoid factor (HCC) LIPID PROFILE Routine 03/06/2021 12:34 PM MAJOR GENERAL Seronegative arthropathy of multiple sites (HCC) High risk medications (not anticoagulants) long-term use from Last 3 Months or Most Recently Relevant to Health Maintenance Results * (ABNORMAL) COMPREHENSIVE METABOLIC PANEL (02/15/2023 8:25 AM MAJOR GENERAL) [facility] Glucose 87 70 - 105 mg/dL [facility] ACCOUNT BILL BUN 9 5.3 - 18.7 mg/dL [facility] ACCOUNT BILL Creatinine 0.79 0.57 - 1.11 mg/dL [facility] ACCOUNT BILL eGFR by CKD-EPI >90 >=90 mL/min/1.7 3 m2 [facility] ACCOUNT BILL Sodium 142 136 - 145 mmol/L [facility] ACCOUNT BILL Potassium 4.2 3.5 - 5.1 mmol/L [facility] ACCOUNT BILL Chloride 111(H) 98 - 107 mmol/L [facility] ACCOUNT BILL CO2 23 22 - 29 mmol/L [facility] ACCOUNT BILL Calcium 8.4 8.4 - 10.4 mg/dL [facility] ACCOUNT BILL Protein Total 5.8(L) 6.4 - 8.3 gm/dL [facility] ACCOUNT BILL Albumin 3.2(L) 3.4 - 5.0 gm/dL [facility] ACCOUNT BILL Bilirubin Total 0.4 0.2 - 1.2 mg/dL [facility] ACCOUNT BILL Alkaline Phosphatase 74 40 - 150 U/L [facility] ACCOUNT BILL AST 22 5 - 34 U/L [facility] ACCOUNT BILL ALT 23 0 - 55 U/L [facility] ACCOUNT BILL Blood BLOOD SPECIMEN / Unknown 02/15/2023 8:25 AM MAJOR GENERAL 02/15/2023 Narrative Resulting Agency Comment Lab Testing performed at: [address] [id number] Lucia Bliss MD LAB - CHEMISTRY SARAI NG [facility] ACCOUNT BILL [address] [place] [address] * HEPATITIS SCREEN ACUTE (07/17/2022) Blood BLOOD SPECIMEN / Unknown Lucia Bliss MD LAB - CHEMISTRY SARAI NG OTHER LAB * (ABNORMAL) LIPID PROFILE (03/06/2021 12:34 PM MAJOR GENERAL) Cholesterol 177 100 - 199 mg/dL [facility] INSURANCE BILL Triglycerides 234(H) 0 - 149 mg/dL [facility] INSURANCE BILL HDL Cholesterol 37(L) >39 mg/dL [facility] INSURANCE BILL VLDL Calculated 40 5 - 40 mg/dL [facility] INSURANCE BILL LDL Calculated 100(H) 0 - 99 mg/dL [facility] INSURANCE BILL Comment NOT NEEDED [facility] INSURANCE BILL Comment: FASTING Ancillary determined the test is not needed. Blood BLOOD SPECIMEN / Unknown 03/06/2021 12:34 PM MAJOR GENERAL 03/06/2021 Narrative Resulting Agency Comment Lab Testing performed at: [facility] [address] [facility] [id number] Brandan Viveros MD LAB - CHEMISTRY OR DERABLES [facility] INSURANCE BILL [address] [place] [address] from Last 3 Months or Most Recently Relevant to Health Maintenance Care Teams Photogrammetry Airplane Pilot Relationship Specialty Start Date End Date Ifeanyi Henderson PA-C [address] [place] [address] PCP - General Physician Cdl Bulk Driver 12/25/21
--- OUTSIDE RECORDS SUMMARY | 2024-05-11 14:52 | XMS_ITS | Encounter Summary ---
Author Organization [facility] Address [facility] [place] [address] Care Team Providers Care Protection Engineer Name Role Phone Bayron Coronado MD Unavailable [phone] Nancy Fournier SOLUTION DIRECTOR Primary Care Provider Unav ailable Jacobo Richardson MD Primary Care Provider Unava ilable None, Provider Primary Care Provider Unavaila ble None, Provider Primary Care Provider Unavaila ble Ifeanyi Henderson PA-C Primary Care Provider [phone] Genie Saunders CARRY OUT CLERK AND SHELF STOCKER Unavailable [phone] Encounter Details Date Type Department Care Team (Late st Contact Info) Description 04/18/2016 Abstract [facility] CONVERSION [address] [address] , Generic Conversion, Social History Tobacco Use Types Packs/Day Years Used Date Smoking Tobacco: Every Day Cigarettes Smokeless Tobacco: Never Alcohol Use Standard Drinks/Week Comments No 0 (1 standard drink = 0.6 oz pur e alcohol) Comments Unknown Sex and Gender Information Value Date Recorded Sex Assigned at Female 05/09/2018 11:17 AM WARBLE SAW OPERATOR Legal Sex Female 12:28 PM CDT Gender Identity Female 05/09/2018 11:17 AM WARBLE SAW OPERATOR Sexual Orientation Straight 05/09/2018 11 :17 AM WARBLE SAW OPERATOR Occupation Industry Job Start Date Job [...] Rule Out 10/23/2020 10/23/2020 01/23/2021 7:39 PM WARBLE SAW OPERATOR COVID-19 Rule Out 10/23/2020 10/23/2020 01/23/2021 7:40 PM WARBLE SAW OPERATOR COVID-19 Rule Out 10/24/2020 10/24/2020 10/25/2020 12:47 AM CDT COVID-19 Rule Out 12/11/2021 12/11/2021 12/11/2021 7:27 PM CDT COVID-19 Rule Out 05/07/2022 05/07/2022 05/07/2022 1:49 PM WARBLE SAW OPERATOR COVID-19 Rule Out 04/19/2023 04/19/2023 04/19/2023 9:15 AM WARBLE SAW OPERATOR COVID-19 Confirmed 04/19/2023 04/19/2023 12:32 AM CDT COVID-19 Rule Out 03/07/2024 03/07/2024 03/07/2024 3:08 PM WARBLE SAW OPERATOR documented as of this encounter Care Teams Protection Engineer Relationship Specialty Start Date End Date Nancy Fournier NP [address] [address] PCP - General NURSE PRACTITIONER 05/19/18 03/24/20 Jacobo Richardson MD [address] [address] PCP - General INTERNAL MEDICINE 03/25/20 07/05/21 None, Provider, PCP - General 07/06/21 07/06/21 None, Provider, PCP - General 07/30/21 10/12/21 Ifeanyi Henderson PA-C [address] [place] [address] PCP - General PHYSICIAN OFFICE SECRETARY 10/13/21 Bayron Coronado MD [facility]. [address] [place] [address] Durkee Fox Raiser CARDIOVASCULAR DISEASE 08/03/15 Genie Saunders FNP [address] [facility] [address] [place] [address] NURSE PRACTITIONER 03/16/24 documented as of this encounter
--- OUTSIDE RECORDS SUMMARY | 2024-05-11 14:52 | XMS_ITS | Clinical Summary ---
Author Organization [facility] Address [address] [place] [address] Care Team Providers Care Carton Inspector Name Role Phone Dylan Gunter MD, Jacobo [...] Administration Dates Next Due PPD TEST 11/14/2009 Surgical History Surgery Date Site/Laterality Comments KNEE SURGERY Knee Surgery - (Added by YADI Conv) [facility] DELIVERY ONLY Section - (Added by YADI Conv) Medical History Medical History Date Comments Arthritis Hypertension Depression Anxiety Asthma Headache Weakness Peripheral neuropathy Low back pain Fibromyalgia, primary Family History * Patient is adopted Relation Name Status Comments Father Alive Mother Alive Social History Tobacco Use Types Packs/Day Years [...] on file Legal Sex Female 5:19 AM FILM LIBRARIAN Gender Identity Female 08/10/2021 3:51 PM CDT Sexual Orientation Straight 08/10/2021 3: 51 PM CDT Obstetrics History Last Filed Vital Signs Vital Sign Reading Time Taken Comments Blood Pressure 130/78 03/17/2021 12:37 PM FILM LIBRARIAN Pulse 90 03/17/2021 12:37 PM FILM LIBRARIAN Temperature 36.6 C (97.8 F) 03/17/2021 10:18 AM FILM LIBRARIAN Respiratory Rate 22 03/17/2021 12:37 PM FILM LIBRARIAN Oxygen Saturation 100% 03/17/2021 12:37 PM FILM LIBRARIAN Inhaled Oxygen Concentration - - Weight 100.5 kg (221 lb 8 oz) 03/17/2021 10:18 A M FILM LIBRARIAN Height 167.6 cm (5' 6 ) 03/17/2021 10:18 AM FILM LIBRARIAN Body Mass Index 35.75 03/17/2021 10:18 AM FILM LIBRARIAN Plan of Treatment Health Maintenance Due Date Last Done Comments Breast Cancer Screening-Mammogram 1977 Cervical Cancer Screening 1977 Colon Cancer Screening-Colonoscopy 1977 Depression Screening 1977 Hepatitis C Screening 1977 Hepatitis B Screening 1995 Regular Well Visit/Exam 18-64 1995 Pneumococcal vaccine <65 (1 of 2 - PCV) 1996 Zoster Vaccine (1 of 2) 1996 Covid-19 Vaccine (4 - 2023-2 5 season) 2023 10/18/2020, 06/24/2020, 05/27/2020 Influenza Vaccine (#1) 2023 0, 11/03/2019, 12/02/2014, Additional history exists DTaP/Tdap/Td Vaccine (5 - Td or Tdap) 10/15/2027 10/14/2017, 10/14/2017, 02/15/2014, Additional history exists Goals Goal Patient Goal Type Associated Problems Recent Progress Patient-Stated? Author CCM Chronic Pain Care Plan Chronic Care Management No change(08/08 7:19 AM CDT) Colleen Dominguez, MIKE Note: Problem: Chronic Pain Goals: 1. Minimize further functional decline 2. Maximize quality of life 3. Control pain Strategies: - Activity/exercise program recommendation - Conservative stepwise pain medicine strategy with multi-disciplinary approach - Recommend healthy lifestyle strategies and compensatory methods as needed Insurance [facility] OTHER Address: [address] [place] [address] [facility] Care Teams Carton Inspector Relationship Specialty Start Date End Date Jacobo Richardson Jr., MD [address] [place] [address] PCP - General Geriatric Medicine 05/05/20
--- OUTSIDE RECORDS SUMMARY | 2024-05-11 14:52 | XMS_ITS | Referral Summary ---
Author Organization [facility] Address [address] [place] [address] Care Team Providers Care Hydroelectric Plant Electrician Name Role Phone Ifeanyi Henderson PA-C Primary Care Provider [phone] Source Comments [facility],non-owned Affiliates and Associated Physician Practices is amultiple site organization consisting of ambulatory clinics and hospital sitesin [place], [place], [place] and [place]. This disclosure is being madepursuant to the Care Everywhere program and may not contain all information available regarding this patient. Last updated 17.[facility] Encounters Date Type Department Care Team Description 04/06/2024 Orders Only [facility] - Urology [address] [place] [address] Gracie Valle, HEALTH ADVOCATE-RECORDS CUSTODIAN 03/26/2024 Refill [facility] - Rheumatology [address] [place] [address], [address] [place] [address] Lucia Bliss MD Refill Request 03/17/2024 Refill [facility] - Rheumatology [address] [facility], [address] [place] [address] Lucia Bliss MD Medication Prior Auth Request 03/02/2024 Travel 03/02/2024 9:30 AM V BELT COVERER Office Visit [facility] - Urology [address] [place] [address] Gracie Valle, HEALTH ADVOCATE-RECORDS CUSTODIAN Recurrent UTI (Primary Dx); Mixed stress and urge urinary incontinence; Urinary urgency from Last 3 Months Allergies Active Allergy Reactions Criticality Noted Date [...] Noted Date Diagnosed Date Rheumatoid arthritis of [facility] sites with negative rheumatoid factor 06/05/2021 [...] 11/24/2012 Hidradenitis suppurativa 02/09/2010 Nicotine dependence 11/23/2009 Social History Tobacco Use Types Packs/Day Years [...] Comments Blood Pressure 120/81 03/02/2024 9:00 AM V BELT COVERER Pulse 67 03/02/2024 9:00 AM V BELT COVERER Temperature 36.8 C (98.2 F) 03/02/2024 9:00 AM V BELT COVERER Respiratory Rate 16 07/02/2023 8:50 AM CDT Oxygen Saturation 97% 03/02/2024 9:00 AM V BELT COVERER Inhaled Oxygen Concentration - - Weight 116.9 kg (257 lb 12.8 oz) 03/02/2024 9:00 AM V BELT COVERER Height 167.6 cm (5' 6 ) 03/02/2024 9:00 AM V BELT COVERER Body Mass Index 41.61 03/02/2024 9:00 AM V BELT COVERER Plan of Treatment Upcoming Encounters Date Type Department Care Team (Late st Contact Info) Description 06/01/2024 9:30 AM CDT Office Visit [facility] - Urology [address] [place] [address] [address] [place] [address] Gracie Valle, HEALTH ADVOCATE-RECORDS CUSTODIAN [address] [facility] DEPT [place] [address] Procedures Procedure Name Priority Date/Time Associated Diagnosis Comments COMPREHENSIVE METABOLIC PANEL Routine 02/15/2023 8:25 AM V BELT COVERER Rheumatoid arthritis of multiple sites with negative rheumatoid factor (HCC) HEPATITIS SCREEN ACUTE Routine 07/17/2022 Rheumatoid arthritis of multiple sites with negative rheumatoid factor (HCC) LIPID PROFILE Routine 03/06/2021 12:34 PM V BELT COVERER Seronegative arthropathy of multiple sites (HCC) High risk medications (not anticoagulants) long-term use from Last 3 Months or Most Recently Relevant to Health Maintenance Results * (ABNORMAL) COMPREHENSIVE METABOLIC PANEL (02/15/2023 8:25 AM V BELT COVERER) Glucose 87 70 - 105 mg/dL [facility] [...] BLOOD SPECIMEN / Unknown 02/15/2023 8:25 AM V BELT COVERER 02/15/2023 Narrative Resulting Agency Comment Lab Testing performed at: [facility] [address] [facility] [id number] Lucia Bliss MD LAB - CHEMISTRY SARAI NG [facility] ACCOUNT BILL [address] [place] [address] * HEPATITIS SCREEN ACUTE (07/17/2022) Blood BLOOD SPECIMEN / Unknown Lucia Bliss MD LAB - CHEMISTRY SARAI NG OTHER LAB * (ABNORMAL) LIPID PROFILE (03/06/2021 12:34 PM V BELT COVERER) Cholesterol 177 100 - 199 mg/dL [facility] [...] BLOOD SPECIMEN / Unknown 03/06/2021 12:34 PM V BELT COVERER 03/06/2021 Narrative Resulting Agency Comment Lab Testing performed at: [facility] [address] [facility] [id number] Brandan Viveros MD LAB - CHEMISTRY OR DERABLES [facility] INSURANCE BILL [address] [place] [address] from Last 3 Months or Most Recently Relevant to Health Maintenance Care Teams Hydroelectric Plant Electrician Relationship Specialty Start Date End Date Nay, Ifeanyi B, PA-C [address] [facility] [place] [address] PCP - General Physician Bottom Turning Lathe Tender 12/25/21
--- OUTSIDE RECORDS SUMMARY | 2024-05-11 14:52 | XMS_ITS | Encounter Summary ---
Author Organization [facility] Address [facility] [place] [address] Care Team Providers Care Assembler Fishing Floats Name Role Phone Bayron Coronado MD Unavailable [phone] Nancy Fournier FEDERAL AIR MARSHAL Primary Care Provider Unav ailable Jacobo Richardson MD Primary Care Provider Unava ilable None, Provider Primary Care Provider Unavaila ble None, Provider Primary Care Provider Unavaila ble Ifeanyi Henderson PA-C Primary Care Provider [phone] Genie Saunders YARN DRY ROOM WORKER Unavailable [phone] Encounter Details Date Type Department Care Team (Late st Contact Info) Description 12/30/2019 Camera360 Message Enc [facility] Family & Internal Medicine [address] [address] [facility], [facility] Provider Covid Results Social History Tobacco Use Types Packs/Day Years [...] Sex Assigned at Female 05/09/2018 11:17 AM REDEVELOPMENT SPECIALIST Legal Sex Female 12:28 PM CDT Gender Identity Female 05/09/2018 11:17 AM REDEVELOPMENT SPECIALIST Sexual Orientation Straight 05/09/2018 11 :17 AM REDEVELOPMENT SPECIALIST 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 No / Unsure 12/28/2019 10:25 AM CDT documented as of this encounter Plan of Treatment Not on file documented as of this encounter Visit Diagnoses Not on filedocumented in this encounter Additional Health Concerns Infection Onset Date Last Indicated Resolved Time COVID-19 Rule Out 10/23/2020 10/23/2020 01/23/2021 7:39 PM REDEVELOPMENT SPECIALIST COVID-19 Rule Out 10/23/2020 10/23/2020 01/23/2021 7:40 PM REDEVELOPMENT SPECIALIST COVID-19 Rule Out 10/24/2020 10/24/2020 10/25/2020 12:47 AM CDT COVID-19 Rule Out 12/11/2021 12/11/2021 12/11/2021 7:27 PM CDT COVID-19 Rule Out 05/07/2022 05/07/2022 05/07/2022 1:49 PM REDEVELOPMENT SPECIALIST COVID-19 Rule Out 04/19/2023 04/19/2023 04/19/2023 9:15 AM REDEVELOPMENT SPECIALIST COVID-19 Confirmed 04/19/2023 04/19/2023 12:32 AM CDT COVID-19 Rule Out 03/07/2024 03/07/2024 03/07/2024 3:08 PM REDEVELOPMENT SPECIALIST documented as of this encounter Care Teams Assembler Fishing Floats Relationship Specialty Start Date End Date Nancy Fournier NP Three [facility]. [address] [address] PCP - General NURSE PRACTITIONER 05/19/18 03/24/20 Jacobo Richardson MD Three [facility]. [facility] [address] [place] [address] PCP - General INTERNAL MEDICINE 03/25/20 07/05/21 None, Provider, PCP - General 07/06/21 07/06/21 None, Provider, PCP - General 07/30/21 10/12/21 Ifeanyi Henderson PA-C [address] [place] [address] PCP - General PHYSICIAN ELECTRONIC GLUING MACHINE OPERATOR 10/13/21 Bayron Coronado MD [facility]. [address] [address] Kun Perinatal Breastfeeding Assistant CARDIOVASCULAR DISEASE 08/03/15 Genie Saunders FNP [address] [address] NURSE PRACTITIONER 03/16/24 documented as of this encounter
--- OUTSIDE RECORDS SUMMARY | 2024-05-11 14:52 | XMS_ITS | Encounter Summary ---
Author Organization [facility] Address [address] [place] [address] Care Team Providers Care Water Analyst Name Role Phone Ifeanyi Henderson PA-C Primary Care Provider Encounter Details Date Type Department Care Team (Late st Contact Info) Description 02/23/2022 Telephone [facility] - Rheumatology [address], [address] [place] [address] Lucia Bliss MD [address] [place] [address] Social History Tobacco Use Types Packs/Day Years Used Date Smoking Tobacco: Every Day Cigarettes Smokeless Tobacco: Never Alcohol Use Standard Drinks/Week Comments Not Currently 0 (1 standard drink = 0.6 oz pur e alcohol) PHQ-2 Answer Date Recorded PHQ2 TOTAL SCORE 0 12/25/2021 Sex and Gender Information Value Date Recorded Sex Assigned at Female 11/28/2020 8:33 AM CDT Gender Identity Female 11/28/2020 8:33 AM CDT Sexual Orientation Straight 11/28/2020 8: 33 AM CDT documented as of this encounter Progress Notes * Edna Cleveland RPhT - 02/23/2022 7:57 AM CST [facility] Pharmacy/[facility] Benefit Investigation Patient: Rachell Perez Insurance (PBM): [place] Medication: [place] Insurance Mandated Pharmacy: Yes - Call pt back E TELEVISION TECHNICIAN documented in this encounter Plan of Treatment Upcoming Encounters Date Type Department Care Team (Late st Contact Info) Description 06/01/2024 9:30 AM CDT Office Visit [facility] - Urology [address] [place] [address] [address] [place] [address] Gracie Valle, BOOK STORE ASSOCIATE-FURNACE COMBUSTION TESTER [address] [facility] [place] [address] documented as of this encounter Visit Diagnoses Not on filedocumented in this encounter Care Teams Water Analyst Relationship Specialty Start Date End Date Ifeanyi Henderson, JOYCE [address] [place] [id number] PCP - General Physician Venetian Blind Worker 12/25/21 documented as of this encounter
--- OUTSIDE RECORDS SUMMARY | 2024-05-11 14:52 | XMS_ITS | Encounter Summary ---
Author Organization [facility] Address [address] [place] [address] Care Team Providers Care Dean Of Admissions Name Role Phone Dylan Gunter MD, Jacobo Germain Primary Care Provider Encounter Details Date Type Department Care Team (Late st Contact Info) Description 02/20/2021 Documentation [facility] [address] [facility] [address] [place] [address] Soren Peña RN Social History Tobacco Use Types Packs/Day Years Used Date Smoking Tobacco: Every Day AUDIT-C Answer Date Recorded Q1: How often do you have a drink containing alc ohol? Never 01/09/2021 Average Number of Drinks Not on file 021 Frequency of Binge Drinking Not on file 10/2020 Comments Unknown Sex and Gender Information Value Date Recorded Sex Assigned at Not on file Legal Sex Female 5:19 AM SKIVER WELT END Gender Identity Female 08/10/2021 3:51 PM CDT Sexual Orientation Straight 08/10/2021 3: 51 PM CDT documented as of this encounter Plan of Treatment Not on file documented as of this encounter Goals Goal Patient Goal Type Associated Problems Recent Progress Patient-Stated? Author CCM Chronic Pain Care Plan Chronic Care Management No change(08/08 7:19 AM CDT) No Colleen Esteban, MIKE Note: Problem: Chronic Pain Goals: 1. Minimize further functional decline 2. Maximize quality of life 3. Control pain Strategies: - Activity/exercise program recommendation - Conservative stepwise pain medicine strategy with multi-disciplinary approach - Recommend healthy lifestyle strategies and compensatory methods as needed documented as of this encounter Visit Diagnoses Not on filedocumented in this encounter Care Teams Dean Of Admissions Relationship Specialty Start Date End Date Jacobo Richardson Jr., MD [address] [place] [address] PCP - General Geriatric Medicine 05/05/20 documented as of this encounter
--- OUTSIDE RECORDS SUMMARY | 2024-05-11 14:52 | XMS_ITS | Clinical Summary ---
Author Organization [facility] Address [address], [facility] [address] [place] [address] Phone Care Team Providers Care Drywall Finisher Name Role Phone Ifeanyi Henderson Primary Care Provider [phone] Allergies Active Allergy Reactions Criticality Noted Date Comments Amoxicillin Other (see Comments) 12/02/2023 Levofloxacin Unknown 12/02/2023 Penicillins Unknown 12/02/2023 Sulfa Antibiotics Unknown 12/02/2023 Medications Secukinumab, 300 MG Dose, (Cosentyx, 300 MG Dose,) 150 MG/ML Solution Prefilled Syringe Inject 2 mL every 4 weeks by subcutaneous route as directed. Active tiZANidine (ZANAFLEX) 4 MG Tablet Take 1 Tablet by mouth nightly. Active verapamil (CALAN,ISOPTIN) 40 MG Tablet Take 1 Tablet by mouth 2 times daily. Active Progesterone (PROMETRIUM) 100 MG Capsule TAKE 1 CAPSULE BY MOUTH EVERYDAY AT BEDTIME 4 Active metFORMIN (GLUCOPHAGE-XR) 500 MG TABLET SR 24 HR TAKE 1 TABLET BY MOUTH EVERY DAY WITH EVENING MEAL 4 Active Advair Diskus 500-50 MCG/ACT AEROSOL POWDER, BREATH ACTIVATED TAKE 1 PUFF BY MOUTH TWICE A DAY 4 Active Dupixent 300 MG/2ML Solution Pen-injector 4 Active albuterol 108 (90 Base) MCG/ACT Aerosol Solution INHALE 2 PUFFS BY MOUTH EVERY 4 HOURS 4 Active cloNIDine (CATAPRES) 0.3 MG Tablet Take 1 Tablet by mouth nightly. 30 Tablet 3 4 Active Rexulti 2 MG TabletIndicatio ns:Major Depressive Disorder Take 1 Tablet by mouth daily. Indications: Major Depressive Disorder 30 Tablet 3 4 Active venlafaxine (EFFEXOR-XR) 75 MG CAPSULE SR 24 HR Take 1 Capsule by mouth daily. 90 Capsule 4 Active venlafaxine (EFFEXOR) 37.5 MG TabletIndicatio ns:Major depressive disorder, recurrent, moderate (HCC) TAKE 1 TABLET BY MOUTH EVERY DAY FOR 30 DAYS 30 Tablet 3 4 Active Active Problems Problem Noted Date Diagnosed Date Moderate recurrent major depression 09/19/2023 Bipolar disorder 03/25/2023 Encounters Date Type Department Care Team Description 04/19/2024 Travel 02/25/[address] [place] [address] [phone] Genie Saunders, RACK ROOM WORKER, REGISTRAR NURSES' REGISTRY Medication Refill from Last 3 Months Social History Tobacco Use Types Packs/Day Years Used Date Smoking Tobacco: Every Day Cigarettes 0.5 32.2 Started: 1990 Smokeless Tobacco: Never Tobacco Cessation:Ready to Q uit: Not Asked; Counseling Given: Not Answered Alcohol Use Standard Drinks/Week Comments Never 0 (1 standard drink = 0.6 oz pur e alcohol) [facility] Utilities Answer Date Recorded In the past 12 months has e Ynsect, gas, oil, or water Straight Up English threatened to shut off services in your home? No 04/19/2024 Social Connection and Isolat ion Panel [NHANES] Answer Date Recorded In a typical week, how many times do you talk on the phone with family, friends, or neighbors? More than three times a week 04/19/2024 How often do you get togethe r with friends or relatives? Patient declined 04/19/2024 How often do you attend chur ch or jain services? Never 04/19/2024 Do you belong to any clubs o r organizations such as jewish groups, unions, fraternal or athletic groups, or school groups? No 04/19/2024 How often do you attend meet ings of the clubs or organizations you belong to? Never 04/19/2024 Are you , , di vorced, , never , or living with a partner? 04/19/2024 AUDIT-C Answer Date Recorded Q1: How often do you have a drink containing alcohol? Never 04/19/2024 Q2: How many drinks containi ng alcohol do you have on a typical day when you are drinking? Patient does not drink Q3: How often do you have si x or more drinks on one occasion? Never 04/19/2024 Overall Financial Resource Strain (CARDIA) Answe r Date Recorded How hard is it for you to pa y for the very basics like food, housing, medical care, and heating? Not very hard 04/19/2024 PHQ-2 Answer Date Recorded Total Score - Questions 1-9 9 05/2023 [facility] - Occupational Stress Questionnaire Answer Date Recorded Do you feel stress - tense, restless, nervous, or anxious, or unable to sleep at night because your mind is troubled all the time - these days? Rather much 04/19/2024 Exercise Vital Sign Answer Date Recorde d On average, how many days pe r week do you engage in moderate to strenuous exercise (like a brisk walk)? 0 days 04/19/2024 On average, how many minutes do you engage in exercise at this level? 0 min 04/19/2024 Hunger Vital Sign Answer Date Recorded Within the past 12 months, y ou worried that your food would run out before you got the money to buy more. Never true 04/19/19 25 Within the past 12 months, t he food you bought just didn't last and you didn't have money to get more. Never true 04/19/2024 PRAPARE - Transportation Answer Date Re corded In the past 12 months, has l ack of transportation kept you from medical appointments or from getting medications? No 04/04 In the past 12 months, has l ack of transportation kept you from meetings, work, or from getting things needed for daily living? No 04/19/2024 Housing Stability Vital Sign Answer Hong e Recorded In the last 12 months, was t here a time when you were not able to pay the mortgage or rent on time? No 04/19/2024 In the past 12 months, how m any times have you moved where you were living? 0 04/19/2024 At any time in the past 12 m [place], were you homeless or living in a residential (including now)? No 04/19/2024 Sexually Active Control Partners Comments Not Currently Comments Unknown Sex and Gender Information Value Date Recorded Sex Assigned at Not on file Legal Sex Female 10:30 AM CDT Gender Identity Female 09/17/2023 12:10 AM CDT Sexual Orientation Not on file Last Filed Vital Signs Vital Sign Reading Time Taken Comments Blood Pressure 98/67 01/20/2024 8:50 AM TRUCK HEADLIGHT ASSEMBLER Pulse 78 01/20/2024 8:50 AM TRUCK HEADLIGHT ASSEMBLER Temperature - - Respiratory Rate 20 01/20/2024 8:50 AM TRUCK HEADLIGHT ASSEMBLER Oxygen Saturation 95% 01/20/2024 8:50 AM TRUCK HEADLIGHT ASSEMBLER Inhaled Oxygen Concentration - - Weight 115.2 kg (254 lb) 01/20/2024 8:50 AM TRUCK HEADLIGHT ASSEMBLER Height 167.6 cm (5' 6 ) 01/20/2024 8:50 AM TRUCK HEADLIGHT ASSEMBLER Body Mass Index 41 01/20/2024 8:50 AM TRUCK HEADLIGHT ASSEMBLER Plan of Treatment Health Maintenance Due Date Last Done Comments Hepatitis B Immunization (1 of 3 - 19+ 3-dose series) 1996 Pneumococcal Immunization Combined (1 of 2 - PCV) 1996 Pap Smear 1998 Cervical Cancer Screening (CCS) 2007 HPV/Cotest 2007 Colonoscopy 2022 Colorectal Cancer Screening 2022 Influenza Immunization (#1) 11/03/202311/02, 11/16/2019, 12/02/2014, Additional history exists SARS-COV-2 Immunization (7 - Pfizer risk 2023- season) 2024 12/05/2023, 12/28/2022, 03/31/2021, Additional history exists Mammogram 09/17/2024 09/18/2023, 09/01, 12/04/2018, Additional history exists Respiratory Syncytial Virus (RSV) Immunization (Adult) (1 - 1-dose 75+ series) 2052 Hepatitis C Virus (HCV) Screening Completed 07/17/2022 TdaP Immunization Completed 2023, , 04/06/2011 Discussion re Starting/Frequency of Mammograms Completed 09/18/2023, 12/04/2018, 07/22/2015 Meningococcal Immunization (ACWY) Aged Out No longer eligible based on patient's age to complete this topic Rotavirus Immunization Aged Out No lo nger eligible based on patient's age to complete this topic Insurance MEDICAID [place] Care Teams Drywall Finisher Relationship Specialty Start Date End Date Ifeanyi Henderson PA [address] [place] [address] PCP - General Physician Director Oracle Database 12/05/23
--- OUTSIDE RECORDS SUMMARY | 2024-05-11 14:52 | XMS_ITS | Encounter Summary ---
Author Organization [facility] Address [facility] [place] [address] Care Team Providers Care Channel Lip Stiffener Insoles Name Role Phone Bayron Coronado MD Unavailable [phone] Nancy Fournier WAREHOUSE SHIFT SUPERVISOR Primary Care Provider Unav ailable Jacobo Richardson MD Primary Care Provider Unava ilable None, Provider Primary Care Provider Unavaila ble None, Provider Primary Care Provider Unavaila ble Ifeanyi Henderson PA-C Primary Care Provider [phone] Genie Saunders TOBACCO CLASSER Unavailable Encounter Details Date Type Department Care Team (Late st Contact Info) Description 07/06/2014 Abstract [facility] [address] [place] [address] , Generic Conversion, Social History Tobacco Use Types Packs/Day Years Used Date Smoking Tobacco: Never Assessed Comments Unknown Sex and Gender Information Value Date Recorded Sex Assigned at Female 05/09/2018 11:17 AM PRINTING ROLLER POLISHER Legal Sex Female 12:28 PM CDT Gender Identity Female 05/09/2018 11:17 AM PRINTING ROLLER POLISHER Sexual Orientation Straight 05/09/2018 11 :17 AM PRINTING ROLLER POLISHER documented as of this encounter Plan of Treatment Not on file documented as of this encounter Visit Diagnoses Not on filedocumented in this encounter Additional Health Concerns Infection Onset Date Last Indicated Resolved Time COVID-19 Rule Out 12/18/2019 12/18/2019 12/19/2019 4:21 PM CDT COVID-19 Rule Out 12/28/2019 12/28/2019 12/29/2019 4:01 PM CDT COVID-19 Rule Out 10/23/2020 10/23/2020 01/23/2021 7:39 PM PRINTING ROLLER POLISHER COVID-19 Rule Out 10/23/2020 10/23/2020 01/23/2021 7:40 PM PRINTING ROLLER POLISHER COVID-19 Rule Out 10/24/2020 10/24/2020 10/25/2020 12:47 AM CDT COVID-19 Rule Out 12/11/2021 12/11/2021 12/11/2021 7:27 PM CDT COVID-19 Rule Out 05/07/2022 05/07/2022 05/07/2022 1:49 PM PRINTING ROLLER POLISHER COVID-19 Rule Out 04/19/2023 04/19/2023 04/19/2023 9:15 AM PRINTING ROLLER POLISHER COVID-19 Confirmed 04/19/2023 04/19/2023 12:32 AM CDT COVID-19 Rule Out 03/07/2024 03/07/2024 03/07/2024 3:08 PM PRINTING ROLLER POLISHER documented as of this encounter Care Teams Channel Lip Stiffener Insoles Relationship Specialty Start Date End Date Nancy Fournier NP [facility]. [address] [address] PCP - General NURSE PRACTITIONER 05/19/18 03/24/20 Jacobo Richardson MD [facility]. [facility] [address] [place] [address] PCP - General INTERNAL MEDICINE 03/25/20 07/05/21 None, Provider, PCP - General 07/06/21 07/06/21 None, Provider, PCP - General 07/30/21 10/12/21 Ifeanyi Henderson PA-C [address] [place] [address] PCP - General PHYSICIAN LOG TRUCK DRIVER 10/13/21 Bayron Coronado MD [facility]. [facility] [address] [place] [address] [place] Shell Molding Roller Blast Operator CARDIOVASCULAR DISEASE 08/03/15 Genie Saunders FNP [address] [address] NURSE PRACTITIONER 03/16/24 documented as of this encounter
--- OUTSIDE RECORDS SUMMARY | 2024-05-11 14:52 | XMS_ITS | Encounter Summary ---
Author Organization [facility] Address [facility] [place] [address] Care Team Providers Care Automotive Instructor Name Role Phone Bayron Coronado MD Unavailable [phone] Nancy Fournier ACCOUNTING LECTURER Primary Care Provider Unav ailable Jacobo Richardson MD Primary Care Provider Unava ilable None, Provider Primary Care Provider Unavaila ble None, Provider Primary Care Provider Unavaila ble Ifeanyi Henderson PA-C Primary Care Provider [phone] Genie Saunders CYLINDER PRESS OPERATOR APPRENTICE Unavailable [phone] Encounter Details Date Type Department Care Team (Late st Contact Info) Description 02/17/2018 Abstract [facility] Neuroscience [facility] [address] [phone] Victor Manuel Austin MD [address] [place] [address] Social History Tobacco Use Types Packs/Day Years Used Date Smoking Tobacco: Every Day Cigarettes Smokeless Tobacco: Never Alcohol Use Standard Drinks/Week Comments No 0 (1 standard drink = 0.6 oz pur e alcohol) Comments Unknown Sex and Gender Information Value Date Recorded Sex Assigned at Female 05/09/2018 11:17 AM MAINFRAME CONSULTANT Legal Sex Female 12:28 PM CDT Gender Identity Female 05/09/2018 11:17 AM MAINFRAME CONSULTANT Sexual Orientation Straight 05/09/2018 11 :17 AM MAINFRAME CONSULTANT Occupation Industry Job Start Date Job End [...] Rule Out 10/23/2020 10/23/2020 01/23/2021 7:39 PM MAINFRAME CONSULTANT COVID-19 Rule Out 10/23/2020 10/23/2020 01/23/2021 7:40 PM MAINFRAME CONSULTANT COVID-19 Rule Out 10/24/2020 10/24/2020 10/25/2020 12:47 AM CDT COVID-19 Rule Out 12/11/2021 12/11/2021 12/11/2021 7:27 PM CDT COVID-19 Rule Out 05/07/2022 05/07/2022 05/07/2022 1:49 PM MAINFRAME CONSULTANT COVID-19 Rule Out 04/19/2023 04/19/2023 04/19/2023 9:15 AM MAINFRAME CONSULTANT COVID-19 Confirmed 04/19/2023 04/19/2023 12:32 AM CDT COVID-19 Rule Out 03/07/2024 03/07/2024 03/07/2024 3:08 PM MAINFRAME CONSULTANT documented as of this encounter Care Teams Automotive Instructor Relationship Specialty Start Date End Date Nancy Fournier NP Three [facility]. [facility] [address] [place] [address] PCP - General NURSE PRACTITIONER 05/19/18 03/24/20 Jacobo Richardson MD Three [facility]. [facility] [address] [place] [address] PCP - General INTERNAL MEDICINE 03/25/20 07/05/21 None, Provider, PCP - General 07/06/21 07/06/21 None, Provider, PCP - General 07/30/21 10/12/21 Ifeanyi Henderson PA-C [address] [place] [address] PCP - General PHYSICIAN RN MEDICATION 10/13/21 Bayron Coronado MD [address] [address] [place] Bargeman CARDIOVASCULAR DISEASE 08/03/15 Genie Saunders FNP [address] [phone] NURSE PRACTITIONER 03/16/24 documented as of this encounter
--- OUTSIDE RECORDS SUMMARY | 2024-05-11 14:52 | XMS_ITS | Encounter Summary ---
Author Organization [facility] Address [facility] [place] [address] Care Team Providers Care Tablet Coater Name Role Phone Bayron Coronado MD Unavailable [phone] Nancy Fournier INDUSTRIAL RELATIONS REPRESENTATIVE Primary Care Provider Unav ailable Jacobo Richardson MD Primary Care Provider Unava ilable None, Provider Primary Care Provider Unavaila ble None, Provider Primary Care Provider Unavaila ble Ifeanyi Henderson PA-C Primary Care Provider [phone] Genie Saunders ANALYTICAL TECHNICIAN Unavailable [phone] Encounter Details Date Type Department Care Team (Late st Contact Info) Description 02/06/2018 Abstract [facility] Neuroscience [facility] [address] [phone] Victor Manuel Austin MD [address] [place] [address] Social History Tobacco Use Types Packs/Day Years Used Date Smoking Tobacco: Every Day Cigarettes Smokeless Tobacco: Never Alcohol Use Standard Drinks/Week Comments No 0 (1 standard drink = 0.6 oz pur e alcohol) Comments Unknown Sex and Gender Information Value Date Recorded Sex Assigned at Female 05/09/2018 11:17 AM VASCULAR PHYSICIAN Legal Sex Female 12:28 PM CDT Gender Identity Female 05/09/2018 11:17 AM VASCULAR PHYSICIAN Sexual Orientation Straight 05/09/2018 11 :17 AM VASCULAR PHYSICIAN Occupation Industry Job Start Date Job End [...] Rule Out 10/23/2020 10/23/2020 01/23/2021 7:39 PM VASCULAR PHYSICIAN COVID-19 Rule Out 10/23/2020 10/23/2020 01/23/2021 7:40 PM VASCULAR PHYSICIAN COVID-19 Rule Out 10/24/2020 10/24/2020 10/25/2020 12:47 AM CDT COVID-19 Rule Out 12/11/2021 12/11/2021 12/11/2021 7:27 PM CDT COVID-19 Rule Out 05/07/2022 05/07/2022 05/07/2022 1:49 PM VASCULAR PHYSICIAN COVID-19 Rule Out 04/19/2023 04/19/2023 04/19/2023 9:15 AM VASCULAR PHYSICIAN COVID-19 Confirmed 04/19/2023 04/19/2023 12:32 AM CDT COVID-19 Rule Out 03/07/2024 03/07/2024 03/07/2024 3:08 PM VASCULAR PHYSICIAN documented as of this encounter Care Teams Tablet Coater Relationship Specialty Start Date End Date Nancy Fournier NP Three [facility]. [facility] [address] [place] [address] PCP - General NURSE PRACTITIONER 05/19/18 03/24/20 Jacobo Richardson MD Three [facility]. [facility] [address] [place] [address] PCP - General INTERNAL MEDICINE 03/25/20 07/05/21 None, Provider, PCP - General 07/06/21 07/06/21 None, Provider, PCP - General 07/30/21 10/12/21 Ifeanyi Henderson PA-C [address] [place] [address] PCP - General PHYSICIAN CARDIOPULMONARY TECHNICIAN AND EEG TECH 10/13/21 Bayron Coronado MD [address] [address] [place] Biomedical Engineering Internship CARDIOVASCULAR DISEASE 08/03/15 Genie Saunders FNP [address] [phone] NURSE PRACTITIONER 03/16/24 documented as of this encounter
--- OUTSIDE RECORDS SUMMARY | 2024-05-11 14:52 | XMS_ITS | Encounter Summary ---
Author Organization [facility] Address [facility] [place] [address] Care Team Providers Care Worsted Winder Name Role Phone Bayron Coronado MD Unavailable [phone] Nancy Fournier EGG TESTER Primary Care Provider Unav ailable Jacobo Richardson MD Primary Care Provider Unava ilable None, Provider Primary Care Provider Unavaila ble None, Provider Primary Care Provider Unavaila ble Ifeanyi Henderson PA-C Primary Care Provider [phone] Genie Saunders OPTICAL MANUFACTURING TECHNICIAN Unavailable [phone] Encounter Details Date Type Department Care Team (Late st Contact Info) Description 02/04/2020 MEDEMt Message Enc [facility] Family & Internal Medicine [address] [address] Nancy Fournier, EGG TESTER RE: Question Social History Tobacco Use Types Packs/Day Years [...] Sex Assigned at Female 05/09/2018 11:17 AM DATA WAREHOUSING SPECIALIST Legal Sex Female 12:28 PM CDT Gender Identity Female 05/09/2018 11:17 AM DATA WAREHOUSING SPECIALIST Sexual Orientation Straight 05/09/2018 11 :17 AM DATA WAREHOUSING SPECIALIST 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 Not on file Not on file documented as of this encounter Plan of Treatment Not on file documented as of this encounter Visit Diagnoses Not on filedocumented in this encounter Additional Health Concerns Infection Onset Date Last Indicated Resolved Time COVID-19 Rule Out 10/23/2020 10/23/2020 01/23/2021 7:39 PM DATA WAREHOUSING SPECIALIST COVID-19 Rule Out 10/23/2020 10/23/2020 01/23/2021 7:40 PM DATA WAREHOUSING SPECIALIST COVID-19 Rule Out 10/24/2020 10/24/2020 10/25/2020 12:47 AM CDT COVID-19 Rule Out 12/11/2021 12/11/2021 12/11/2021 7:27 PM CDT COVID-19 Rule Out 05/07/2022 05/07/2022 05/07/2022 1:49 PM DATA WAREHOUSING SPECIALIST COVID-19 Rule Out 04/19/2023 04/19/2023 04/19/2023 9:15 AM DATA WAREHOUSING SPECIALIST COVID-19 Confirmed 04/19/2023 04/19/2023 12:32 AM CDT COVID-19 Rule Out 03/07/2024 03/07/2024 03/07/2024 3:08 PM DATA WAREHOUSING SPECIALIST documented as of this encounter Care Teams Worsted Winder Relationship Specialty Start Date End Date Nancy Fournier NP [address] [address] PCP - General NURSE PRACTITIONER 05/19/18 03/24/20 Jacobo Richardson MD [address] [address] PCP - General INTERNAL MEDICINE 03/25/20 07/05/21 None, Provider, PCP - General 07/06/21 07/06/21 None, Provider, PCP - General 07/30/21 10/12/21 Ifeanyi Henderson PA-C [address] [place] [address] PCP - General PHYSICIAN CHIEF ORDER DISPATCHER 10/13/21 Bayron Coronado MD [facility]. [facility] [address] [place] [address] [place] Long Distance Billing Operator CARDIOVASCULAR DISEASE 08/03/15 Genie Saunders FNP [address] [facility] [address] [place] [id number] NURSE PRACTITIONER 03/16/24 documented as of this encounter
--- OUTSIDE RECORDS SUMMARY | 2024-05-11 14:52 | XMS_ITS | Encounter Summary ---
Author Organization [facility] Address [facility] [place] [address] Care Team Providers Care Stars Coordinator Name Role Phone Bayron Coronado MD Unavailable [phone] Nancy Fournier HEAD OF MEASUREMENT & INSIGHTS Primary Care Provider Unav ailable Jacobo Richardson MD Primary Care Provider Unava ilable None, Provider Primary Care Provider Unavaila ble None, Provider Primary Care Provider Unavaila ble Ifeanyi Henderson PA-C Primary Care Provider [phone] Genie Saunders RETORT LOADER Unavailable [phone] Encounter Details Date Type Department Care Team (Late st Contact Info) Description 02/10/2004 Abstract [facility] Conversion Md, Generic Conversion, Social History Tobacco Use Types Packs/Day Years Used Date Smoking Tobacco: Never Assessed Comments Unknown Sex and Gender Information Value Date Recorded Sex Assigned at Female 05/09/2018 11:17 AM MAIL CARRIER Legal Sex Female 12:28 PM CDT Gender Identity Female 05/09/2018 11:17 AM MAIL CARRIER Sexual Orientation Straight 05/09/2018 11 :17 AM MAIL CARRIER documented as of this encounter Plan of Treatment Not on file documented as of this encounter Visit Diagnoses Not on filedocumented in this encounter Additional Health Concerns Infection Onset Date Last Indicated Resolved Time COVID-19 Rule Out 12/18/2019 12/18/2019 12/19/2019 4:21 PM CDT COVID-19 Rule Out 12/28/2019 12/28/2019 12/29/2019 4:01 PM CDT COVID-19 Rule Out 10/23/2020 10/23/2020 01/23/2021 7:39 PM MAIL CARRIER COVID-19 Rule Out 10/23/2020 10/23/2020 01/23/2021 7:40 PM MAIL CARRIER COVID-19 Rule Out 10/24/2020 10/24/2020 10/25/2020 12:47 AM CDT COVID-19 Rule Out 12/11/2021 12/11/2021 12/11/2021 7:27 PM CDT COVID-19 Rule Out 05/07/2022 05/07/2022 05/07/2022 1:49 PM MAIL CARRIER COVID-19 Rule Out 04/19/2023 04/19/2023 04/19/2023 9:15 AM MAIL CARRIER COVID-19 Confirmed 04/19/2023 04/19/2023 12:32 AM CDT COVID-19 Rule Out 03/07/2024 03/07/2024 03/07/2024 3:08 PM MAIL CARRIER documented as of this encounter Care Teams Stars Coordinator Relationship Specialty Start Date End Date Nancy Fournier NP [address] [address] PCP - General NURSE PRACTITIONER 05/19/18 03/24/20 Jacobo Richardson MD [address] [address] PCP - General INTERNAL MEDICINE 03/25/20 07/05/21 None, Provider, PCP - General 07/06/21 07/06/21 None, Provider, PCP - General 07/30/21 10/12/21 Ifeanyi Henderson PA-C [address] [place] [address] PCP - General PHYSICIAN BLOOD COORDINATOR 10/13/21 Bayron Coronado MD [address] [address] [place] Coating Machine Feeder CARDIOVASCULAR DISEASE 08/03/15 Genie Saunders FNP [address] [address] NURSE PRACTITIONER 03/16/24 documented as of this encounter
--- OUTSIDE RECORDS SUMMARY | 2024-05-11 14:52 | XMS_ITS | Clinical Summary ---
Author Organization [facility] Address [address] [place] [address] Phone Care Team Providers Care Leading Firefighter Name Role Phone Brandan Viveros MD Primary Care Pr ovider Unavailable Allergies Active Allergy Reactions Criticality Noted Date Comments Amoxicillin Rash Medium 02/13/2005 Other reaction(s): yeast Reaction: Rash, Reaction: Rash, Other reaction(s): yeast Baclofen Confusion,Dizziness Low 10/06/2019 Cholecalciferol (Vitamin D3) Confusion,Dizziness Low 10/06/2019 Dexamethasone Confusion,Dizziness Low 10/06/2019 Leflunomide Confusion,Dizziness Low 10/06/2019 Levofloxacin Rash Low 06/08/2019 Redness and warmth apparent at IV site within first 10 min of infusion. Oxycodone-Acetaminophen Nausea and Vomiting High Reaction: Vomiting, vomit Reaction: Vomiting, vomit Propoxyphene Unknown,Nausea and Vomiting Low 04/30/2014 Reaction: Vomiting, Propoxyphene-Acetaminophe n Nausea and Vomiting Low 10/06/2019 Sulfamethoxazole-Trimetho prim Muscle Pain,Unknown,Rash,O ther (See Comments) Medium 09/05/2012 Flu symptoms Varenicline Hives,Nausea and Vomiting High 07/01/2017 Skin on hands peel off Peeling of skin on hands Other reaction(s): skin peeling from hands Medications albuterol HFA 90 mcg inhaler Take 43,467 Puffs by inhalation every 4 hours as needed. 9 Active amitriptyline (ELAVIL) 50 mg tablet Take 50 mg by mouth daily at bedtime. 0 Active topiramate (TOPAMAX) 25 mg tablet TAKE 3 TABLETS BY MOUTH TWICE A DAY 0 Active SUMAtriptan (IMITREX) 100 mg tablet TAKE 1 TAB AT ONSET OF SYMPTOMS, MAY REPEAT IN 2 HOURS MAX/2 TABS/24 HOUR PERIOD. 0 Active pregabalin (LYRICA) 150 mg Capsule Take 150 mg by mouth 3 times daily. 9 Active Active Problems No known active problems Social History Tobacco Use Types Packs/Day Years Used Date Smoking Tobacco: Every Day Cigarettes 1 33 Tobacco Cessation:Ready to Q uit: Yes; Counseling Given: Yes Comments:trying to quit Comments No Sex and Gender Information Value Date Recorded Sex Assigned at Not on file Legal Sex Female 9:24 AM CDT Gender Identity Not on file Sexual Orientation Not on file Last Filed Vital Signs Vital Sign Reading Time Taken Comments Blood Pressure 122/72 10/06/2019 1:39 PM CDT Pulse 98 10/06/2019 1:39 PM CDT Temperature - - Respiratory Rate - - Oxygen Saturation - - Inhaled Oxygen Concentration - - Weight 101.6 kg (224 lb) 10/06/2019 1:39 PM CDT Height 167.6 cm (5' 6 ) 10/06/2019 1:39 PM CDT Body Mass Index 36.15 10/06/2019 1:39 PM CDT Plan of Treatment Health Maintenance Due Date Last Done Comments HEPATITIS B VACCINES (1 of 3 - 19+ 3-dose series) 1996 CERVICAL CANCER SCREENING 2007 BREAST CANCER SCREENING 2017 COLORECTAL SCREENING 2022 Colorectal Cancer Screening 2022 FIT-DNA Q 3 years 2022 FIT/FOBT Q 1 year 2022 Flex Sig/CT Colonography Q 5 years 2022 INFLUENZA VACCINE (#1) 2023 DTAP/TDAP/TD VACCINES (3 - Td or Tdap) 02/16/2024, 04/06/2011 Insurance Care Teams Leading Firefighter Relationship Specialty Start Date End Date Brandan Viveros MD PCP - General Internal Medicine 10/05/19
--- OUTSIDE RECORDS SUMMARY | 2024-05-11 14:52 | XMS_ITS | Clinical Summary ---
Author Organization [facility] Address [facility] [place] [address] Care Team Providers Care Contamination Consultant Name Role Phone Bayron Coronado MD Unavailable [phone] Ifeanyi Henderson PA-C Primary Care Provider [phone] Genie Saunders CAGE SUPERVISOR Unavailable [phone] Allergies Active Allergy Reactions Criticality Noted Date Comments Amoxicillin Rash Low 02/13/2005 Other reaction(s): yeast Baclofen Dizziness,Rash,Unkno wn Medium 10/06/2019 Carbamazepine Rash Medium 05/27/2023 Cholecalciferol Dizziness,Other (see comment) Medium 10/06/2019 Dexamethasone Dizziness Low 10/06/2019 Leflunomide Dizziness Low 10/06/2019 Levofloxacin Rash Low 12/02/2023 Methotrexate Itching Medium 05/06/2020 Oxycodone-Acetaminophen Vomiting High 05/26/2014 Penicillins Rash,Other (see comment) Low 12/02/2023 Patient states It was a long time ago Propoxyphene Vomiting,Nausea and Vomiting Low 10/06/2019 Reaction: Vomiting, Sulfa Antibiotics Vomiting Low 12/02/2023 Sulfamethoxazole-Trimetho prim Rash,Vomiting Low 04/30/2014 Varenicline Contact Dermatitis High 07/01/2017 Peeling of skin on hands Other reaction(s): skin peeling from hands Medications busPIRone 5 MG tablet Take 5 mg by mouth 2 (two) times daily. 12/02/19 20 Active TOPIRAMATE 100 MG tabletIndicatio ns:Migraine without status migrainosus, not intractable, unspecified migraine type TAKE 1 TABLET BY MOUTH EVERY DAY 30 tablet 12/29/19 20 Active cyclobenzaprine (FLEXERIL) 10 MG tablet Take 1 tablet (10 mg total) by mouth 3 (three) times daily as needed for Muscle Spasms. 15 tablet 10/17/19 22 Active SUMAtriptan (IMITREX) 25 MG tablet Take 1 tablet (25 mg total) by mouth 2 (two) times daily as needed for Migraine. Max of 8 tablets (200 mg) in a 24 hour period. Active DULoxetine (CYMBALTA) 60 MG capsule Take 1 capsule (60 mg total) by mouth nightly at bedtime. Active hydroxychloroqu ine (PLAQUENIL) 200 MG tablet Take 400 mg by mouth daily. Active albuterol sulfate HFA 108 (90 Base) MCG/ACT inhaler Inhale 2 puffs into the lungs every 6 (six) hours as needed for Wheezing. 8 g 12/12/19 22 Active tiZANidine (ZANAFLEX) 4 MG tablet Take 2 tablets (8 mg total) by mouth nightly at bedtime. at bedtime 12/19/19 22 Active Biotin 10 MG Cap daily. Active albuterol sulfate HFA 108 (90 Base) MCG/ACT inhaler Inhale 2 puffs into the lungs every 6 (six) hours as needed for Wheezing. 18 g 04/10/19 24 Active brexpiprazole (REXULTI) 2 MG tablet Take 1 tablet (2 mg total) by mouth daily. Active ipratropium-alb uterol (DUONEB) 0.5-2.5 (3) MG/3ML Solution Take 3 mLs by nebulization every 4 (four) hours as needed. 360 mL 03/07/19 25 Active loratadine-pseu doephedrine ER (CLARITIN-D 12-HR) 5-120 MG 12 hr tablet Take 1 tablet by mouth 2 (two) times daily. 28 tablet 04/15/19 25 Active cefdinir (OMNICEF) 300 MG Cap capsule Take 1 capsule (300 mg total) by mouth 2 (two) times daily. 20 capsule 04/17/19 25 Active HYDROcodone-lakhwinder taminophen (NORCO) 5-325 MG tabletIndicatio ns:Acute Pain < 3 Day Supply Take 1 tablet by mouth every 6 (six) hours as needed for Pain. Indications: Acute Pain < 3 Day Supply 10 tablet 06/06/19 23 025 Discontinu ed(Therapy completed) traMADol (ULTRAM) 50 MG tabletIndicatio ns:Acute Pain < 7 Day Supply Take 1 tablet (50 mg total) by mouth every 6 (six) hours as needed for Pain. Indications: Acute Pain < 7 Day Supply 20 tablet 10/10/19 23 025 Discontinu ed(Therapy completed) traMADol (ULTRAM) 50 MG tabletIndicatio ns:Acute Pain < 3 Day Supply Take 1 tablet (50 mg total) by mouth every 6 (six) hours as needed for Pain. Indications: Acute Pain < 3 Day Supply 10 tablet 04/17/19 25 025 Discontinu ed(Therapy completed) traMADol (ULTRAM) 50 MG tabletIndicatio ns:Acute Pain < 3 Day Supply Take 1 tablet (50 mg total) by mouth every 6 (six) hours as needed for Pain. Indications: Acute Pain < 3 Day Supply 10 tablet 04/19/19 25 025 promethazine (PHENERGAN) 25 MG tablet Take 1 tablet (25 mg total) by mouth every 6 (six) hours as needed for Nausea. 16 tablet 04/19/19 25 025 Active Problems Problem Noted Date Diagnosed Date Cyst of buttocks 06/11/2018 Lumbar radiculopathy 06/03/2018 Chronic migraine without aur a, intractable, without status migrainosus 03/06/2018 Numbness on left side 12/24/2017 Coarse tremors 12/04/2017 Strain of calf muscle 12/04/2017 Persistent insomnia 10/07/2017 Trigeminal neuralgia 08/15/2017 Dysphagia 08/12/2017 Lower extremity weakness 08/12/2017 Paresthesia of both hands 07/03/2017 Pain, pelvic, female 06/18/2017 Ulnar nerve abnormality 08/07/2016 Fibromyalgia 05/12/2016 Migraine headache 05/12/2016 Positive antinuclear antibody 04/24/2016 Cellulitis and abscess of trunk 03/04/2016 Overview (03/17/2018): Cellulitis and abscess of trunk Sebaceous cyst 03/04/2016 Overview (03/17/2018): Sebaceous cyst Easy bruising 12/07/2015 Tobacco use 11/13/2015 Fibrocystic breast disease (FCBD) 07/24/2015 Asthma ([facility]) 06/06/2015 Nicotine dependence 04/19/2015 Emphysema, unspecified ([facility]) 016 Overview (03/17/2018): Transitioned From: COPD with acute exacerbation Pulmonary nodule 09/23/2014 Anxiety 08/05/2014 Eustachian tube dysfunction 08/05/2014 Overview (03/17/2018): Date Onset: 08/05/2014 Hidradenitis 04/30/2014 Depressive disorder 11/24/2012 Chest pain, unspecified Shortness of breath Overview (12/05/2015): h/o Resolved Problems Problem Noted Date Diagnosed Date Resolved Date Class 2 obesity due to exces s calories without serious comorbidity with body mass index (BMI) of 36.0 to 36.9 in adult 05/23/2017 Overview (03/17/2018): Transitioned From: BMI 30.0-30.9,adult Encounters Date Type Department Care Team Description 04/19/2024 4:26 PM SECURITY OFFICER SUPERVISOR - 04/19/2024 5:00 PM [facility] [email or web address] Emergency [facility] [address] [place] [address] [place] [address] Colby Gonzales, DO Earache Discharge Disposition: Home or Self Care (Routine Discharge) 04/19/2024 Travel 04/17/2024 3:05 AM SECURITY OFFICER SUPERVISOR - 04/17/2024 3:36 AM [facility] [[email or web address] Emergency [facility] [address] [place] [address] [place] [address] Colby Gonzales, DO Earache Discharge Disposition: Home or Self Care (Routine Discharge) 04/17/2024 Travel 04/15/2024 5:09 PM SECURITY OFFICER SUPERVISOR - 04/15/2024 5:51 PM [facility] [[email or web address]] Emergency [facility] [address] [place] [address] [place] [address] Torey Olivas MD Earache Discharge Disposition: Home or Self Care (Routine Discharge) 04/15/2024 Travel 03/25/2024 3:59 PM SECURITY OFFICER SUPERVISOR - 03/25/2024 4:55 PM SECURITY OFFICER SUPERVISOR Emergency [facility] [address] [address] Clayton Friend MD Headache Discharge Disposition: Home or Self Care (Routine Discharge) 03/25/2024 Travel 03/07/2024 2:34 PM SECURITY OFFICER SUPERVISOR - 03/07/2024 4:53 PM SECURITY OFFICER SUPERVISOR Emergency [facility] Emergency Room [address] [place] [address] Bryan Sanders MD Cough Discharge Disposition: Home or Self Care (Routine Discharge) 03/07/2024 Travel from Last 3 Months Immunizations Name Administration Dates Next Due Fluzone 6 Months+ Quad (0.5 mL Prefilled Syringe) 11/16/2019,03/17/2018(Deferred: Patient Refused - Patient refuses to get influenza vaccine) Influenza (Generic) 12/02/2014 Influenza Adult (Generic) 02/05/2012,02/08/2011 PFIZER COVID-19 (ORIGINAL FORMULATION, PURPLE CAP) mRNA, LNP-S, PF, 30 MCG/0.3 ML DOSE 10/18/2020 Td 10/14/2017 Tdap (Boostrix) 2023 Tdap (Generic) 02/15/2014,04/06/2011 Family History * Patient is adopted Medical History Relation Comments No Known Problems Brother Breast Cancer Mother unsure age apprx Cancer Mother brain cancer No Known Problems Sister 1 No Known Problems Sister 2 Relation Status Comments Brother Alive Father Alive Mother Alive Sister 1 Alive Sister 2 Alive Social History Tobacco Use Types Packs/Day Years Used Date Smoking Tobacco: Every Day Cigarettes 0.5 15 Smokeless Tobacco: Never Tobacco Cessation:Ready to Q uit: No; Counseling Given: Yes Comments:Verbalized understanding of smoking cessation. Recommended she quit. 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 Not on file Not on file Last Filed Vital Signs Vital Sign Reading Time Taken Comments Blood Pressure 144/88 04/19/2024 4:25 PM SECURITY OFFICER SUPERVISOR Pulse 80 04/19/2024 4:25 PM SECURITY OFFICER SUPERVISOR Temperature 37.1 C (98.8 F) 04/19/2024 4:25 PM SECURITY OFFICER SUPERVISOR Respiratory Rate 16 04/19/2024 4:25 PM SECURITY OFFICER SUPERVISOR Oxygen Saturation 98% 04/19/2024 4:25 PM SECURITY OFFICER SUPERVISOR Inhaled Oxygen Concentration - - Weight 113.4 kg (250 lb) 04/19/2024 4:25 PM SECURITY OFFICER SUPERVISOR Height 167.6 cm (5' 6 ) 04/19/2024 4:25 PM SECURITY OFFICER SUPERVISOR Body Mass Index 40.35 04/19/2024 4:25 PM SECURITY OFFICER SUPERVISOR Plan of Treatment Health Maintenance Due Date Last Done Comments Colorectal Cancer Screening Colonoscopy (10 Years) 1977 Annual Physical 1980 Pneumococcal Vaccine: Pediatrics (0 to 5 Years) and At-Risk Patients (6 to 64 Years) (1 of 2 - PCV) 1983 Hepatitis B Vaccines (1 of 3 - 19+ 3-dose series) 1996 COVID-19 Vaccine ( - 2023- season) 2023 10/18/2020, 06/24/2020, 05/27/2020 Influenza Adult (#1) 2023 11/16/2019, 12/02/2014, 02/05/2012, Additional history exists PHQ-2 (Physician [place]) 03/04/2024 Mammogram Screening 09/17/2025 09/18/2023, 12/04/2018, 07/22/2015 DTaP, Tdap and Td Vaccines (5 - Td or Tdap) 2033 2023, 10/14/2017, 02/15/2014, Additional history exists Hepatitis C Completed 07/17/2022 Meningococcal B Vaccine Aged Out No l onger eligible based on patient's age to complete this topic Meningococcal Vaccine Aged Out No mona joy eligible based on patient's age to complete this topic RSV Immunizations Under 20 Months Aged Out No longer eligible based on patient's age to complete this topic Procedures Procedure Name Priority Date/Time Associated Diagnosis Comments ELECTROCARDIOGRAM REPORT Routine 025 8:42 AM SECURITY OFFICER SUPERVISOR XR CHEST PA+LAT STAT 03/07/2024 4:01 PM SECURITY OFFICER SUPERVISOR INFLUENZA A & B STAT 03/07/2024 2:45 PM SECURITY OFFICER SUPERVISOR CORONAVIRUS (COVID 19) STAT 2:45 PM SECURITY OFFICER SUPERVISOR ECG 12-LEAD Routine 03/07/2024 2:39 PM SECURITY OFFICER SUPERVISOR MG SCREENING W RADHA ERLIN DIGI Routine 09/18/2023 10:40 AM CDT Encounter for screening mammogram for malignant neoplasm of breast from Last 3 Months or Most Recently Relevant to Health Maintenance Results * EKG Reading (03/08/2024 8:42 AM SECURITY OFFICER SUPERVISOR) Narrative Bryan Sanders MD - 03/08/2024 8:42 AM SECURITY OFFICER SUPERVISOR Bryan Sanders MD 03/08/2024 8:43 AM EKG Reading Date/Time: 03/08/2024 8:42 AM Performed by: Bryan Sanders MD Authorized by: Bryan Sanders MD Interpreted by ED physician Rhythm: sinus rhythm Rate: normal BPM: 81 QRS axis: normal Conduction: conduction normal ST Segments: ST segments normal T Waves: T waves normal Other: no other findings us Bryan Sanders MD [place] CARDIOVASCULAR SYSTEM SER VICES Final Result * XR CHEST PA+LAT (03/07/2024 4:01 PM SECURITY OFFICER SUPERVISOR) Anatomical Region Laterality Modality Chest Radiographic Lynne ging 03/07/2024 4:16 PM SECURITY OFFICER SUPERVISOR Impressions 03/07/2024 4:19 PM SECURITY OFFICER SUPERVISOR IMPRESSION:===== NO ACUTE CARDIOPULMONARY FINDINGS. Referred By: Interpreted By: Burton Rivera MD, 03/07/2024 4:16 PM Narrative 03/07/2024 4:19 PM SECURITY OFFICER SUPERVISOR [facility] [address] [place] [address] EXAMINATION: Chest X-Ray 2 View EXAM DATE/TIME: 03/07/2024 3:55 PM REASON FOR EXAM: Cough, chest tightness, hx of asthma. COMPARISON: Chest from 05/22/2023. TECHNIQUE: PA and lateral views of the chest were obtained. FINDINGS: There is no focal infiltrate or consolidative change. Heart size is within normal limits. Pulmonary vasculature is within normal limits. There is no large pleural effusion or pneumothorax. Skeletal structures are grossly intact. ===== Procedure Note Burton Rivera MD - 03/07/2024 [facility] [address] [place] [address] EXAMINATION: Chest X-Ray 2 View EXAM DATE/TIME: 03/07/2024 3:55 PM REASON FOR EXAM: Cough, chest tightness, hx of asthma. COMPARISON: Chest from 05/22/2023. TECHNIQUE: PA and lateral views of the chest were obtained. FINDINGS: There is no focal infiltrate or consolidative change. Heart sizeis within normal limits. Pulmonary vasculature is within normal limits.There is no large pleural effusion or pneumothorax. Skeletal structuresare grossly intact. ===== IMPRESSION:===== NO ACUTE CARDIOPULMONARY FINDINGS. Referred By: Interpreted By: Burton Rivera MD, 03/07/2024 4:16 PM us Bryan Sanders MD GENERAL IMAGING Final Result * CORONAVIRUS (COVID-19) MOLECULAR (03/07/2024 2:45 PM SECURITY OFFICER SUPERVISOR) CORONAVIRUS SARS COV 2 RNA NEGATIVE NEGATIVE 03/07/2024 3:08 PM SECURITY OFFICER SUPERVISOR [facility] Comment: NEGATIVE RESULTS DO NOT RULE OUT COVID 19 AND SHOULD NOT BE USED THE SOLE BASIS FOR TREATMENT OR PATIENT MANAGEMENT DECISIONS, INCLUDING INFECTION CONTROL DECISIONS. NEGATIVE RESULTS SHOULD BE CONSIDERED IN THE CONTEXT OF A PATIENT'S RECENT EXPOSURES, HISTORY AND THE PRESENCE OF CLINICAL SIGNS AND SYMPTOMS CONSISTENT WITH COVID 19. THE ID NOW COVID-19 2.0 TEST HAS BEEN AUTHORIZED BY THE FDA UNDER EAU FOR USE BY AUTHORIZED LABORATORIES. PERFORMED BY NUCLEIC ACID AMPLIFICATION FOR MOLECULAR QUALITATIVE DETECTION OF SARS-COV-2. SPECIMEN TYPE NASAL 03/07/2024 2:45 PM SECURITY OFFICER SUPERVISOR [facility] NASOPHARYNGEAL SWAB / Unknown 03/07/2024 2:45 PM SECURITY OFFICER SUPERVISOR us Bryan Sanders MD MICROBIOLOGY - GENERAL ORDER ANNALISE Final Result [facility] [address] [place] [address], [place] [phone] * INFLUENZA A & B (03/07/2024 2:45 PM SECURITY OFFICER SUPERVISOR) SPECIMEN TYPE NASOPHARYNGEAL SWAB 03/07/2024 2:51 PM SECURITY OFFICER SUPERVISOR [facility] INFLUENZA A NEGATIVE NEGATIVE 03/07/2024 3:09 PM SECURITY OFFICER SUPERVISOR [facility] INFLUENZA B NEGATIVE NEGATIVE 03/07/2024 3:09 PM SECURITY OFFICER SUPERVISOR [facility] NASOPHARYNGEAL SWAB / Unknown 03/07/2024 2:45 PM SECURITY OFFICER SUPERVISOR us Bryan Sanders MD MICROBIOLOGY - GENERAL ORDER ANNALISE Final Result Performing Organization Address City/[facility]/ZIP Co de Phone Number [facility] [address] [place] [address], [place] [phone] * ECG 12 lead (03/07/2024 2:39 PM SECURITY OFFICER SUPERVISOR) 03/07/2024 2:39 PM SECURITY OFFICER SUPERVISOR Narrative [facility] - 03/07/2024 10:26 PM SECURITY OFFICER SUPERVISOR [facility] Test Date: 2024-03-07 Pat Name: RACHELL PEREZ Department: 85 Room: EXAM 404 Gender: Female Conservation Science Officer: : 1975 Requested By: BRYAN SANDERS Order Number: [id number] Reading : Bayron Coronado Measurements Intervals Tabor Rate: 81 P: 43 MO: 183 QRS: 21 QRSD: 82 T: 0 QT: 374 QTc: 436 Interpretive Statements SINUS RHYTHM NONSPECIFIC T-WAVE ABNORMALITY Compared to ECG 05/26/2023 21:35:37 T-wave abnormality now present RITY OFFICER SUPERVISOR Procedure Note Bayron Coronado MD - 03/07/2024 [facility] Test Date: 2024-03-07 Pat Name: RACHELL PEREZ Department: 85 Room: EXAM 404 Gender: Female Conservation Science Officer: : 1975 Requested By: BRYAN SANDERS Order Number: [id number] Reading MD: Bayron Coronado Measurements Intervals Tabor Rate: 81 P: 43 MO: 183 QRS: 21 QRSD: 82 T: 0 QT: 374 QTc: 436 Interpretive Statements SINUS RHYTHM NONSPECIFIC T-WAVE ABNORMALITY Compared to ECG 05/26/2023 21:35:37 T-wave abnormality now present RITY OFFICER SUPERVISOR us Bryan Sanders MD ECG ORDERABLES Final Result [facility] * MG SCREENING W RADHA ERLIN DIGI (09/18/2023 10:40 AM CDT) Anatomical Region Laterality Modality Breast Bilateral Computed Tomogra phy 09/18/2023 3:15 PM CDT Impressions 09/18/2023 3:23 PM CDT ===== IMPRESSION: ===== 1. Stable mammographic appearance with no new findings to suggest malignancy in either breast. Assessment: ACR BI-RADS 1 - NEGATIVE Recommendation: 1:Routine Screening Bilateral Comments: Ordered By: MILTON BEATTY Interpreted By: Nora Iglesias, 09/18/2023 3:15 PM Narrative 09/18/2023 3:23 PM CDT EXAMINATION: Digital bilateral screening mammogram with 3-D tomosynthesis EXAM DATE/TIME: 09/18/2023 10:20 AM REASON FOR EXAM: YEARLY Breast carcinoma in mother at age 50. COMPARISON: 06/27/2022.. 12/04/2018 Technique: Digital screening mammography of both breasts was performed in addition to 3-D Tomosynthesis technique. This study was read with the assistance of a computer-aided detection system. Tissue density: There are scattered areas of fibroglandular density. Findings: There is no new focal asymmetry, dominant mass lesion, area of skin thickening, or cluster of suspicious appearing calcifications in either breast to suggest malignancy. Milton Beatty MD MAMMO Final Resul t from Last 3 Months or Most Recently Relevant to Health Maintenance Insurance Care Teams Contamination Consultant Relationship Specialty Start Date End Date Ifeanyi Henderson PA-C [address] [place] [address] PCP - General PHYSICIAN DENTAL MECHANIC 10/13/21 Bayron Coronado MD Three [address] [address] [employer] Audit Manager CARDIOVASCULAR DISEASE 08/03/15 Genie Saunders FNP [address] [address] NURSE PRACTITIONER 03/16/24
--- OUTSIDE RECORDS SUMMARY | 2024-05-11 14:52 | XMS_ITS | Encounter Summary ---
Author Organization [facility] Address [address] [place] [address] Phone Care Team Providers Care Alpaca Farmer Name Role Phone Ifeanyi Henderson Primary Care Provider [phone] Reason for Visit * Reason Comments Medication Refill Encounter Details Date Type Department Care Team (Late st Contact Info) Description 12/01/2023 Refill [facility] [address] [place] [phone] Genie Saunders, AUTOMOBILE TECHNICIAN, CHICK GRADER [address] [place] [phone] (Work) Medication Refill Social History Tobacco Use Types Packs/Day Years Used Date Smoking Tobacco: Never Assessed PHQ-2 Answer Date Recorded Total Score - Questions 1-9 9 10/0 05/2023 Comments Unknown Sex and Gender Information Value Date Recorded Sex Assigned at Not on file Legal Sex Female 10:30 AM CDT Gender Identity Female 09/17/2023 12:10 AM CDT Sexual Orientation Not on file documented as of this encounter Miscellaneous Notes * Telephone Encounter - Paula Kohler LPN - 12/02/2023 10:04 AM CDT Dose increased to clonidine 0.3mg and RX for this was sent 10/21/2023 with 3 refills. No new RX should be needed. documented in this encounter Plan of Treatment Not on file documented as of this encounter Visit Diagnoses Diagnosis Bipolar disorder, unspecified (HCC) Bipolar disorder, unspecified documented in this encounter Care Teams Alpaca Farmer Relationship Specialty Start Date End Date Ifeanyi Henderson PA [address] [place] [address] PCP - General Physician Frozen Yogurt Maker 12/05/23 documented as of this encounter
--- OUTSIDE RECORDS SUMMARY | 2024-05-11 14:52 | XMS_ITS | Encounter Summary ---
Author Organization [facility] Address [address] [place] [address] Care Team Providers Care Production Sorter Name Role Phone Dylan Gunter MD, Jacobo Germain Primary Care Provider Encounter Details Date Type Department Care Team (Late st Contact Info) Description 08/16/2021 Telephone [facility] [address] [facility] [address] [place] [address] Avtar Martini MD [address] [place], [place] [id number] Social History Tobacco Use Types Packs/Day Years Used Date Smoking Tobacco: Every Day Cigarettes 0.1 30 Smokeless Tobacco: Never AUDIT-C Answer Date Recorded Q1: How often [...] on file Legal Sex Female 5:19 AM BROOMCORN GRADER Gender Identity Female 08/10/2021 3:51 PM CDT Sexual Orientation Straight 08/10/2021 3: 51 PM CDT documented as of this encounter Plan of Treatment Not on file documented as of this encounter Goals Goal Patient Goal Type Associated Problems Recent Progress Patient-Stated? Author CCM Chronic Pain Care Plan Chronic Care Management No change(08/08 7:19 AM CDT) No Colleen Esteban, RN Note: Problem: Chronic Pain Goals: 1. Minimize further functional decline 2. Maximize quality of life 3. Control pain Strategies: - Activity/exercise program recommendation - Conservative stepwise pain medicine strategy with multi-disciplinary approach - Recommend healthy lifestyle strategies and compensatory methods as needed documented as of this encounter Visit Diagnoses Not on filedocumented in this encounter Care Teams Production Sorter Relationship Specialty Start Date End Date Jacobo Richardson Jr., MD [address] [place] [address] PCP - General Geriatric Medicine 05/05/20 documented as of this encounter
--- OUTSIDE RECORDS SUMMARY | 2024-05-11 14:52 | XMS_ITS | Patient Health Summary ---
Author Organization [facility] Address [address] [place] [address] Care Team Providers Care Electric Welder Name Role Phone Ifeanyi Henderson PA-C Primary Care Provider [phone] Note from [facility],non-owned Affiliates and Associated Physician Practices is amultiple site organization consisting of ambulatory clinics and hospital sitesin [place], [place], [place]. This disclosure is being madepursuant to the Care Everywhere program and may not contain all information available regarding this patient. Last updated 17.[facility] Allergies * Amoxicillin(Rash) -Medium Criticality * Baclofen(Dizziness,Psychiatric) -Medium Criticality * Sulfamethoxazole W-Trimethoprim(Vomiting) -Medium Criticality * Carbamazepine(Rash) -Medium Criticality * Varenicline(Skin Reactions) * Cholecalciferol(Dizziness,Psychiatric) -Medium Criticality * Dexamethasone(Dizziness,Psychiatric) -Medium Criticality * Leflunomide(Dizziness,Psychiatric) -Medium Criticality * Levofloxacin(Rash) -Medium Criticality * Methotrexate (Anti-Rheumatic)(Itching) -Medium Criticality * Oxycodone-Acetaminophen(Other,Vomiting) -High Criticality Medications * Be aware that medications may not be up to date on this document. Alwaysverify current medications with the patient. * albuterol (PROVENTIL;VENTOLIN) (2.5 MG/3ML) 0.083% nebulizer solution(Started 06/22/2020) * verapamil (Isoptin) 40 MG tablet(Started 12/22/2021) * Rexulti 3 MG tablet(Started 07/21/2023) * cloNIDine (Catapres) 0.1 MG tablet(Started 07/15/2023) TAKE 1-2 TABLET BY MOUTH EVERY DAY AT BEDTIME FOR 30 DAYS * mirabegron ER 24hr (Myrbetriq) 50 MG tablet(Started 10/18/2023) Take 1 (one) tablet by mouth once daily * Dupixent 300 MG/2ML prefilled pen(Started 12/26/2023) * metFORMIN ER 24hr (Glucophage XR) 500 MG tablet(Started 10/29/2023) TAKE 1 TABLET BY MOUTH EVERY DAY WITH EVENING MEAL * SUMAtriptan (Imitrex) 50 MG tablet(Started 12/13/2023) TAKE 1 TABLET WITH ONSET OF HEADACHE, MAY REPEAT DOSE X1 AFTER 2 HOURS IF NO RELIEF * venlafaxine (Effexor) 37.5 MG tablet(Started 12/23/2023) TAKE 1 TABLET BY MOUTH EVERY DAY FOR 30 DAYS * methenamine hippurate (Hiprex) 1 GM tablet(Started 03/02/2024) Take 1 (one) tablet by mouth 2 times daily 5 refills by 03/02/2025 * ascorbic acid (Vitamin C) 500 MG tablet(Started 03/02/2024) Take 1 (one) tablet by mouth 2 times daily 5 refills by 03/02/2025 * secukinumab (Cosentyx UnoReady) 300 MG/2ML SOAJ pen(Started 03/23/2024) Inject 300 (three hundred) mg subcutaneously every 28 days Maintenance dosing 5 refills by 03/23/2025 * tiZANidine (Zanaflex) 4 MG tablet(Started 03/26/2024) TAKE 2 TABLETS BY MOUTH AT BEDTIME 2 refills by 03/26/2025 * tolterodine ER 24hr (Detrol LA) 4 MG capsule(Started 04/06/2024) Take 1 (one) capsule by mouth once daily 4 refills by 04/06/2025 Active Problems Problem Noted Date Diagnosed Date [facility] [place] with negative rheumatoid factor 06/05/2021 Sjogren's [...] (FCBD) 07/24/2015 Asthma 06/06/2015 Emphysema, unspecified 04/08/2015 Pulmonary nodule 09/23/2014 Anxiety 08/05/2014 Eustachian tube dysfunction 08/05/2014 Depressive disorder 11/24/2012 Hidradenitis suppurativa 02/09/2010 [...] Comments Blood Pressure 120/81 03/02/2024 9:00 AM ROTARY DRIER OPERATOR Pulse 67 03/02/2024 9:00 AM ROTARY DRIER OPERATOR Temperature 36.8 C (98.2 F) 03/02/2024 9:00 AM ROTARY DRIER OPERATOR Respiratory Rate 16 07/02/2023 8:50 AM CDT Oxygen Saturation 97% 03/02/2024 9:00 AM ROTARY DRIER OPERATOR Inhaled Oxygen Concentration - - Weight 116.9 kg (257 lb 12.8 oz) 03/02/2024 9:00 AM ROTARY DRIER OPERATOR Height 167.6 cm (5' 6 ) 03/02/2024 9:00 AM ROTARY DRIER OPERATOR Body Mass Index 41.61 03/02/2024 9:00 AM ROTARY DRIER OPERATOR Procedures * URINALYSIS W/MICROSCOPIC NO CULTURE(Performed 07/25/2023) Performed for Mixed stress and urge urinary incontinence * VA MSR PVR U&/BLADD CAPCTY US NON(Performed 07/25/2023) Performed for Mixed stress and urge urinary incontinence * URINALYSIS AUTO - POINT OF CARE (AMB) [facility](Performed 07/25/2023) Performed for Mixed stress and urge urinary incontinence * XR LUMBAR SPINE 2 OR 3VW(Performed 02/15/2023) Performed for Low back pain, unspecified back pain laterality, unspecified chronicity, unspecified whether sciatica present * XR SI JOINTS 3VW OR MORE(Performed 02/15/2023) Performed for Low back pain, unspecified back pain laterality, unspecified chronicity, unspecified whether sciatica present * C-REACTIVE PROTEIN(Performed 02/15/2023) Performed for Rheumatoid arthritis of multiple sites with negative rheumatoid factor (HCC) * ERYTHROCYTE SEDIMENTATION RATE(Performed 02/15/2023) Performed for Rheumatoid arthritis of multiple sites with negative rheumatoid factor (HCC) * COMPREHENSIVE METABOLIC PANEL(Performed 02/15/2023) Performed for Rheumatoid arthritis of multiple sites with negative rheumatoid factor (HCC) * CBC W AUTO DIFFERENTIAL(Performed 02/15/2023) Performed for Rheumatoid arthritis of multiple sites with negative rheumatoid factor (HCC) * HEPATITIS SCREEN ACUTE(Performed 07/17/2022) Performed for Rheumatoid arthritis of multiple sites with negative rheumatoid factor (HCC) * COMPREHENSIVE METABOLIC PANEL(Performed 07/17/2022) Performed for Rheumatoid arthritis of multiple sites with negative rheumatoid factor (HCC) * CBC W AUTO DIFFERENTIAL(Performed 11/13/2021) Performed for Rheumatoid arthritis of multiple sites with negative rheumatoid factor (HCC) * IGM BLOOD(Performed 10/30/2021) Performed for Sjogren's syndrome, with unspecified organ involvement (HCC), Rheumatoid arthritis ofmultiple sites with negative rheumatoid factor (HCC) * IGA BLOOD(Performed 10/30/2021) Performed for Sjogren's syndrome, with unspecified organ involvement (HCC), Rheumatoid arthritis ofmultiple sites with negative rheumatoid factor (HCC) * IGG BLOOD(Performed 10/30/2021) Performed for Sjogren's syndrome, with unspecified organ involvement (HCC), Rheumatoid arthritis ofmultiple sites with negative rheumatoid factor (HCC) * COMPREHENSIVE METABOLIC PANEL(Performed 10/30/2021) Performed for Sjogren's syndrome, with unspecified organ involvement (HCC), Rheumatoid arthritis ofmultiple sites with negative rheumatoid factor (HCC) * CBC W AUTO DIFFERENTIAL(Performed 10/30/2021) Performed for Sjogren's syndrome, with unspecified organ involvement (HCC), Rheumatoid arthritis ofmultiple sites with negative rheumatoid factor (HCC) * LAB(Performed 07/18/2021) * LAB(Performed 07/08/2021) * PHOSPHATIDYLSERINE IGG/IGM/IGA AB PANEL(Performed 03/06/2021) Performed for Small fiber neuropathy, Seronegative rheumatoid arthritis (HCC) * CARDIOLIPIN ANTIBODY IGG/IGM PANEL(Performed 03/06/2021) Performed for Small fiber neuropathy, Seronegative rheumatoid arthritis (HCC) * BETA-2 GLYCOPROTEIN 1 ANTIBODY IGG/IGM PANEL(Performed 03/06/2021) Performed for Small fiber neuropathy, Seronegative rheumatoid arthritis (HCC) * LUPUS ANTICOAGULANT PANEL W RFLX(Performed 03/06/2021) Performed for Small fiber neuropathy, Seronegative rheumatoid arthritis (HCC) * CK BLOOD(Performed 03/06/2021) Performed for Small fiber neuropathy, Seronegative rheumatoid arthritis (HCC) * EARLY SJOGREN'S SYNDROME PROFILE(Performed 03/06/2021) Performed for Small fiber neuropathy, Seronegative rheumatoid arthritis (HCC) * LIPID PROFILE(Performed 03/06/2021) Performed for Seronegative arthropathy of multiple sites (HCC), High risk medications (not anticoagulants) long-term use * C-REACTIVE PROTEIN(Performed 03/06/2021) Performed for Seronegative arthropathy of multiple sites (HCC) * ERYTHROCYTE SEDIMENTATION RATE(Performed 03/06/2021) Performed for Seronegative arthropathy of multiple sites (HCC) * COMPREHENSIVE METABOLIC PANEL(Performed 03/06/2021) Performed for Seronegative arthropathy of multiple sites (HCC), High risk medications (not anticoagulants) long-term use * CBC W AUTO DIFFERENTIAL(Performed 03/06/2021) Performed for Seronegative arthropathy of multiple sites (HCC), High risk medications (not anticoagulants) long-term use * C-REACTIVE PROTEIN(Performed 08/08/2020) Performed for Seronegative arthropathy of multiple sites (HCC) * ERYTHROCYTE SEDIMENTATION RATE(Performed 08/08/2020) Performed for Seronegative arthropathy of multiple sites (HCC) * COMPREHENSIVE METABOLIC PANEL(Performed 08/08/2020) Performed for Seronegative arthropathy of multiple sites (HCC), High risk medications (not anticoagulants) long-term use * CBC W AUTO DIFFERENTIAL(Performed 08/08/2020) Performed for Seronegative arthropathy of multiple sites (HCC), High risk medications (not anticoagulants) long-term use * CMGTEST(Performed 05/12/2020) * HEPATITIS SCREEN ACUTE(Performed 05/06/2020) Performed for Seronegative arthropathy of multiple sites (HCC), High risk medications (not anticoagulants) long-term use * QUANTIFERON TB-GOLD(Performed 05/06/2020) Performed for Seronegative arthropathy of multiple sites (HCC), High risk medications (not anticoagulants) long-term use * MYOSITIS ANTIBODY PANEL COMPREHENSIVE(Performed 05/06/2020) Performed for Seronegative arthropathy of multiple sites (HCC), Small fiber neuropathy * ULICES PANEL COMPREHENSIVE(Performed 08/19/2019) Performed for Seronegative arthropathy of multiple sites (HCC), Raynaud's phenomenon without gangrene * LAB(Performed 08/06/2019) Results * (ABNORMAL) URINALYSIS W/MICROSCOPIC NO CULTURE (07/25/2023 1:17 PM CDT) Color UA YELLOW YELLOW [facility] Appearance CLEAR CLEAR [facility] Specific [place] UA 1.010 1.001 - 1.035 [facility] pH UA 6.0 5.0 - 8.0 [facility] Glucose UA NEGATIVE NEGATIVE [facility] Bilirubin UA NEGATIVE NEGATIVE [facility] Ketone UA NEGATIVE NEGATIVE [facility] Blood UA NEGATIVE NEGATIVE [facility] Protein UA NEGATIVE NEGATIVE [facility] Nitrite UA NEGATIVE NEGATIVE [facility] Leukocyte UA NEGATIVE NEGATIVE [facility] WBC UA NONE SEEN < OR = 5 /HPF [facility] RBC UA NONE SEEN < OR = 2 /HPF [facility] Epithelial Cell UA 6-10(A) < OR = 5 /HPF [facility] Bacteria UA NONE SEEN NONE SEEN /HPF [facility] Hyaline Casts NONE SEEN NONE SEEN /LPF [facility] Comment: NO COLLECTION DATE RECEIVED. WE HAVE USED THE DATE THE SPECIMEN WAS RECEIVED BY THIS LABORATORY THE COLLECTION DATE. IF THIS IS INCORRECT, PLEASE CONTACT CLIENT SERVICES. PHONE NUMBER: [phone] Test Performed at: [facility] [address] [place] [address] PATSY WHITAKER MD Urine URINE SPECIMEN OBTAINED BY CLEAN CATCH PROCEDURE / Unknown 07/25/2023 1:17 PM CDT 07/26/2023 10:20 AM CDT Gracie Valle COMPENSATOR-RETAIL LOAN ORIGINATOR LAB - URINALYSI S ORDERABLES [facility] [address] [place] [address] * VA MSR PVR U&/BLADD CAPCTY US NON (07/25/2023 11:07 AM CDT) Narrative Delfina Ricketts MA - 07/25/2023 11:07 AM CDT Delfina Ricketts MA 07/30/2023 12:56 PM PVR = 73 mL Gracie Valle COMPENSATOR-RETAIL LOAN ORIGINATOR PROCEDURE/MINOR SURGICAL ORDERABLES * URINALYSIS AUTO - POINT OF CARE (AMB) [facility] (07/25/2023 11:05 AM CDT) Glucose UA - [facility] [address] Bilirubin UA POCT - [facility] [address] Ketones UA POCT - [facility] [address] Specific [place] UA 1.[address] [facility] [address] Blood Urine POCT 1+ [facility] [address] pH UA 6.[address] [facility] [address] Protein UA - [facility] [address] Urobilinogen UA - [facility] [address] Nitrite UA - [facility] [address] WBC UA - [facility] [address] Urine URINE / Unknown 07/25/2023 1 1:05 AM CDT Gracie Valle COMPENSATOR-RETAIL LOAN ORIGINATOR LAB - POINT OF CARE ORDERABLES [facility] [address] [place] [address], [facility] [phone] * XR SI JOINTS 3VW OR MORE (02/15/2023 11:12 AM ROTARY DRIER OPERATOR) Anatomical Region Laterality Modality Pelvis, Lower Extremity Radiogra phic Imaging 02/15/2023 12:3 7 PM ROTARY DRIER OPERATOR Impressions 02/15/2023 12:39 PM ROTARY DRIER OPERATOR Impression: Normal-appearing 3 view study of the sacroiliac joints bilaterally. Both femoral heads appear normal in appearance and are in satisfactory relationship to their respective acetabula with preservation of the hip joint spaces bilaterally. > Interpreting Provider: Burton Meredith MD on 02/15/2023 12:39 PM Narrative 02/15/2023 12:39 PM ROTARY DRIER OPERATOR PROCEDURE: XR SI JOINTS 3VW OR MORE DATE/TIME OF EXAM: 02/15/2023 11:12 AM CLINICAL INFORMATION: None relevant/not provided if blank. Indication: M54.50: Low back pain, unspecified Additional History: COMPARISON: None. TECHNIQUE: FINDINGS: AP and bilateral oblique views of the sacroiliac joints were obtained. Bilaterally the sacroiliac joints appear to be patent and symmetric in appearance. There is no evidence of significant sclerotic changes, periarticular erosion, nor fusion across either sacroiliac joint. Procedure Note Burton Meredith MD - 02/15/2023 PROCEDURE: XR SI JOINTS 3VW OR MORE DATE/TIME OF EXAM: 02/15/2023 11:12 AM CLINICAL INFORMATION: None relevant/not provided if blank. Indication: M54.50: Low back pain, unspecified Additional History: COMPARISON: None. TECHNIQUE: FINDINGS: AP and bilateral oblique views of the sacroiliac joints were obtained. Bilaterally the sacroiliac joints appear to be patent and symmetric in appearance. There is no evidence of significant sclerotic changes, periarticular erosion, nor fusion across either sacroiliacjoint. Impression: Normal-appearing 3 view study of the sacroiliac joints bilaterally. Both femoral heads appear normal in appearance and are in satisfactory relationship to their respective acetabula with preservation of the hip joint spaces bilaterally. > Interpreting Provider: Burton Meredith MD on 02/15/2023 12:39 PM Lucia Bliss MD DIAGNOSTIC IMAGING O RDERABLES * XR LUMBAR SPINE 2 OR 3VW (02/15/2023 11:12 AM ROTARY DRIER OPERATOR) Anatomical Region Laterality Modality Spine Radiographic Lynne ging 02/15/2023 11:1 5 AM ROTARY DRIER OPERATOR Narrative 02/15/2023 11:16 AM ROTARY DRIER OPERATOR PROCEDURE: XR LUMBAR SPINE 2 OR 3VW DATE/TIME OF EXAM: 02/15/2023 11:12 AM CLINICAL INFORMATION: None relevant/not provided if blank. Indication: M54.50: Low back pain, unspecified Additional History: Findings/impression: Lateral spinal alignment appears normal. Vertebral body heights are normal. Severe disc space narrowing is seen at L5-S1. 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 No gross compression deformity is seen. > Interpreting Provider: Danny Torres MD on 02/15/2023 11:16 AM Procedure Note Danny Torres MD - 02/15/2023 PROCEDURE: XR LUMBAR SPINE 2 OR 3VW DATE/TIME OF EXAM: 02/15/2023 11:12 AM CLINICAL INFORMATION: None relevant/not provided if blank. Indication: M54.50: Low back pain, unspecified Additional History: Findings/impression: Lateral spinal alignment appears normal. Vertebral body heights are normal. Severe disc space narrowing is seen at L5-S1. 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 No gross compression deformity is seen. > Interpreting Provider: Danny Torres MD on 02/15/2023 11:16 AM Lucia Bliss MD DIAGNOSTIC IMAGING O RDERABLES * C-REACTIVE PROTEIN (02/15/2023 8:25 AM ROTARY DRIER OPERATOR) Only the most recent of3 resultswithin the time period is included. C-Reactive Protein 0.22 <=0.50 mg/dL [facility] ACCOUNT BILL Blood BLOOD SPECIMEN / Unknown 02/15/2023 8:25 AM ROTARY DRIER OPERATOR 02/15/2023 Narrative Resulting Agency Comment Lab Testing performed at: [facility] [address] [id number] Lucia Bliss MD LAB - CHEMISTRY SARAI NG [facility] Organization Address City/State/ZIP Co de Phone Number [facility] ACCOUNT BILL [address] [place] [address] * ERYTHROCYTE SEDIMENTATION RATE (02/15/2023 8:25 AM ROTARY DRIER OPERATOR) Only the most recent of3 resultswithin the time period is included. Erythrocyte Sedimentation Rate Westergren 4 0 - 20 MM/HR [facility] ACCOUNT BILL Blood BLOOD SPECIMEN / Unknown 02/15/2023 8:25 AM ROTARY DRIER OPERATOR 02/15/2023 Narrative Resulting Agency Comment Lab Testing performed at: [facility] [address] [phone] Lucia Bliss MD LAB - HEMATOLOGY ORD ERABLES [facility] ACCOUNT BILL [address] [place] [address] * (ABNORMAL) CBC WITH DIFFERENTIAL (02/15/2023 8:25 AM ROTARY DRIER OPERATOR) Only the most recent of5 resultswithin the time period is included. WBC 7.2 4.4 - 10.7 x10E9/L [facility] ACCOUNT BILL RBC 4.26 3.80 - 5.20 x10E12/L [facility] ACCOUNT BILL Hemoglobin 14.0 12.0 - 15.6 gm/dL [facility] ACCOUNT BILL Hematocrit 44.0 35.9 - 45.5 % [facility] ACCOUNT BILL MCV 103.3(H) 80.7 - 98.3 fl [facility] ACCOUNT BILL MCH 32.9 26.7 - 34.0 pg [facility] ACCOUNT BILL MCHC 31.8 30.8 - 35.9 gm/dL [facility] ACCOUNT BILL RDW 13.2 12.1 - 14.9 % [facility] ACCOUNT BILL Platelet Count 218 153 - 416 x10E9/L [facility] ACCOUNT BILL Comment:MPV FL BLOOD ([facility]) 1 1.2 fl 9.4-12.9 Granulocytes % 61.7 44.0 - 73.0 % [facility] ACCOUNT BILL Lymphocytes % 26.3 20.0 - 43.0 % [facility] ACCOUNT BILL Monocytes % 9.5 5.0 - 13.0 % [facility] ACCOUNT BILL Eosinophils % 1.4 0.0 - 6.0 % [facility] ACCOUNT BILL Basophils % 0.7 0.0 - 2.0 % [facility] ACCOUNT BILL Granulocytes Absolute 4.42 2.01 - 7.14 x10E9/L [facility] ACCOUNT BILL Lymphocytes Absolute 1.88 1.07 - 3.94 x10E9/L [facility] ACCOUNT BILL Monocytes Absolute 0.68 0.26 - 1.07 x10E9/L [facility] ACCOUNT BILL Eosinophils Absolute 0.10 0 - 0.47 x10E9/L [facility] ACCOUNT BILL Basophils Absolute 0.05 0 - 0.08 x10E9/L [facility] ACCOUNT BILL Immature Granulocytes 0.4 0 - 1 % [facility] ACCOUNT BILL Immature Granulocytes Absolute 0.03 0.00 - 0.06 x10E9/L [facility] ACCOUNT BILL nRBC 0 /100 WBC [facility] ACCOUNT BILL Blood BLOOD SPECIMEN / Unknown 02/15/2023 8:25 AM ROTARY DRIER OPERATOR 02/15/2023 Narrative Resulting Agency Comment Lab Testing performed at: [address] [phone] Lucia Bliss MD LAB - HEMATOLOGY ORD ERABLES [facility] ACCOUNT BILL [address] [place] [address] * (ABNORMAL) COMPREHENSIVE METABOLIC PANEL (02/15/2023 8:25 AM ROTARY DRIER OPERATOR) Only the most recent of5 resultswithin the time period is included. Glucose 87 70 - 105 mg/dL [facility] [...] BLOOD SPECIMEN / Unknown 02/15/2023 8:25 AM ROTARY DRIER OPERATOR 02/15/2023 Narrative Resulting Agency Comment Lab Testing performed at: [facility] [address] [phone] Lucia Bliss MD LAB - CHEMISTRY SARAI NG [facility] ACCOUNT BILL [address] [place] [address] * HEPATITIS SCREEN ACUTE (07/17/2022) Only the most recent of2 resultswithin the time period is included. Blood BLOOD SPECIMEN / Unknown Lucia Bliss MD LAB - CHEMISTRY SARAI NG Performing Organization Address City/[facility]/ZIP Co de Phone Number OTHER LAB * IGM BLOOD (10/30/2021 9:35 AM CDT) IgM 237 37 - 286 mg/dL 10/30/2021 3:44 PM CDT [facility] Blood BLOOD SPECIMEN / Unknown Venipuncture / Unknown 10/30/2021 9:35 AM CDT 10/30/2021 9:45 AM CDT Lucia Bliss MD LAB - CHEMISTRY SARAI NG Performing Organization Address City/[facility]/ZIP Co de Phone Number [facility] [address] [address], [facility] [phone] * IGG BLOOD (10/30/2021 9:35 AM CDT) IgG 956 767 - 1,590 mg/dL 10/30/2021 3:44 PM CDT [facility] Blood BLOOD SPECIMEN / Unknown Venipuncture / Unknown 10/30/2021 9:35 AM CDT 10/30/2021 9:45 AM CDT Lucia Bliss MD LAB - CHEMISTRY SARAI NG [address] [address], [place] [phone] * IGA BLOOD (10/30/2021 9:35 AM CDT) [facility] IgA 164 61 - 356 mg/dL 10/30/2021 3:44 PM CDT [facility] Blood BLOOD SPECIMEN / Unknown Venipuncture / Unknown 10/30/2021 9:35 AM CDT 10/30/2021 9:45 AM CDT Lucia Bliss MD LAB - CHEMISTRY SARAI NG Performing Organization Address [facility] Co de Phone Number [address] [address], [place] [phone] * LAB (07/18/2021) Only the most recent of3 resultswithin the time period is included. Lucia Bliss MD SCANNING ONLY * (ABNORMAL) CARDIOLIPIN ANTIBODY IGG/IGM PANEL (03/06/2021 12:35 PM ROTARY DRIER OPERATOR) [facility] Cardiolipin Antibody IgG <9 0 - 14 GPL U/mL [facility] INSURANCE BILL Comment: Negative: <15 Indeterminate: 15 - 20 Low-Med Positive: >20 - 80 High Positive: >80 Cardiolipin Antibody IgM 16(H) 0 - 12 MPL U/mL [facility] INSURANCE BILL Comment: Negative: <13 Indeterminate: 13 - 20 Low-Med Positive: >20 - 80 High Positive: >80 [facility] Blood BLOOD SPECIMEN / Unknown 03/06/2021 12:35 PM ROTARY DRIER OPERATOR 03/06/2021 Narrative Resulting Agency Comment [facility] [address] [facility] [phone] Lucia Bliss MD LAB - SEROLOGY ORDER ANNALISE [facility] INSURANCE BILL [address] [place] [address] * LUPUS ANTICOAGULANT PANEL W RFLX (03/06/2021 12:35 PM ROTARY DRIER OPERATOR) Pathologist [facility] PTT-LA 36.8 0.0 - 51.9 sec [facility] INSURANCE BILL dRVVT 36.1 0.0 - 47.0 sec [facility] INSURANCE BILL Interpretation Comment: [facility] INSURANCE BILL Comment: No lupus anticoagulant was detected. [facility] Blood BLOOD SPECIMEN / Unknown 03/06/2021 12:35 PM ROTARY DRIER OPERATOR 03/06/2021 Narrative Resulting Agency Comment Lab Testing performed at: [facility] [id number] Lucia Bliss MD LAB - HEMATOLOGY ORD ERABLES Performing Organization Address [facility] de Phone Number [facility] INSURANCE BILL [address] [place] [address] * BETA-2 GLYCOPROTEIN 1 ANTIBODY IGG/IGM PANEL (03/06/2021 12:35 PM ROTARY DRIER OPERATOR) Pathologist [facility] Beta-2 Glycoprotein I Antibody IgG <9 0 - 20 GPI IgG units [facility] INSURANCE BILL Comment: The reference interval reflects a 3SD or 99th percentile interval, which is thought to represent a potentially clinically significant result in accordance with the International Consensus Statement on the classification criteria for definitive antiphospholipid syndrome (APS). J Thromb Haem 2006;4:295-306. Beta-2 Glycoprotein I Antibody IgM <9 0 - 32 GPI IgM units [facility] INSURANCE BILL Comment: The reference interval reflects a 3SD or 99th percentile interval, which is thought to represent a potentially clinically significant result in accordance with the International Consensus Statement on the classification criteria for definitive antiphospholipid syndrome (APS). J Thromb Haem 2006;4:295-306. [facility] Blood BLOOD SPECIMEN / Unknown 03/06/2021 12:35 PM ROTARY DRIER OPERATOR 03/06/2021 Narrative Resulting Agency Comment Lab Testing performed at: [facility] [address] [id number] Lucia Bliss MD LAB - CHEMISTRY ORDBrooks NG Performing Organization Address [facility] Co de Phone Number [facility] INSURANCE BILL [address] [place] [address] * CK BLOOD (03/06/2021 12:35 PM ROTARY DRIER OPERATOR) CK 125 32 - 182 U/L [facility] INSURANCE BILL Comment:FASTING Blood BLOOD SPECIMEN / Unknown 03/06/2021 12:35 PM ROTARY DRIER OPERATOR 03/06/2021 Narrative Resulting Agency Comment Lab Testing performed at: [facility] [place] [address] [facility] [phone] Lucia Bliss MD LAB - CHEMISTRY ORDE RABLES Performing Organization Address City/[facility]/ZIP Co de Phone Number [facility] INSURANCE BILL [address] [place] [address] * (ABNORMAL) PHOSPHATIDYLSERINE IGG/IGM/IGA AB PANEL (03/06/2021 12:35 PM ROTARY DRIER OPERATOR) Antiphosphatidylserine Antibody IgM 31(H) 0 - 30 Units [facility] INSURANCE BILL Antiphosphatidylserine Antibody IgA 1 0 - 19 APS Units [facility] INSURANCE BILL Antiphosphatidylserine Antibody IgG <9 0 - 30 Units [facility] INSURANCE BILL Comment:FASTING Blood BLOOD SPECIMEN / Unknown 03/06/2021 12:35 PM ROTARY DRIER OPERATOR 03/06/2021 Narrative Resulting Agency Comment Lab Testing performed at: [facility] [id number] Lucia Bliss MD LAB - SEROLOGY ORDER ANNALISE Performing Organization Address City/[facility]/ZIP Co de Phone Number [facility] INSURANCE BILL [address] [place] [address] * EARLY SJOGREN'S SYNDROME PROFILE (03/06/2021 12:34 PM ROTARY DRIER OPERATOR) Salivary Protein 1 Antibody IgG 4.5 EU/ml [facility] INSURANCE BILL Comment: Reference Range: Negative:< 20 EU/ml Borderline:20-25 EU/ml Positive:> 25 EU/ml Salivary Protein 1 Antibody IgA 1.8 EU/ml [facility] INSURANCE BILL Comment: Reference Range: Negative:< 20 EU/ml Borderline:20-25 EU/ml Positive:> 25 EU/ml Salivary Protein 1 Antibody IgM 4.1 EU/ml [facility] INSURANCE BILL Comment: Reference Range: Negative:< 20 EU/ml Borderline:20-25 EU/ml Positive:> 25 EU/ml Carbonic Anhydrase Antibody IgG 23.4 EU/ml [facility] INSURANCE BILL Comment: Reference Range: Negative:< 20 EU/ml Borderline:20-25 EU/ml Positive:> 25 EU/ml Carbonic Anhydrase Antibody IgA 1.3 EU/ml [facility] INSURANCE BILL Comment: Reference Range: Negative:< 20 EU/ml Borderline:20-25 EU/ml Positive:> 25 EU/ml Carbonic Anhydrase Antibody IgM 8.4 EU/ml [facility] INSURANCE BILL Comment: Reference Range: Negative:< 20 EU/ml Borderline:20-25 EU/ml Positive:> 25 EU/ml Parotid Specific Protein Antibody IgG 5.5 EU/ml [facility] INSURANCE BILL Comment: Reference Range: Negative:< 20 EU/ml Borderline:20-25 EU/ml Positive:> 25 EU/ml Parotid Specific Protein Antibody IgA 6.6 EU/ml [facility] INSURANCE BILL Comment: Reference Range: Negative:< 20 EU/ml Borderline:20-25 EU/ml Positive:> 25 EU/ml Parotid Specific Protein Antibody IgM 7.0 EU/ml [facility] INSURANCE BILL Comment: Reference Range: Negative:< 20 EU/ml Borderline:20-25 EU/ml Positive:> 25 EU/ml The novel antibodies salivary gland protein 1 (SP-1), carbonic anhydrase 6 (CA ) and parotid secretory protein (PSP) have shown to be present in animal models for Sjogren's syndrome (SS) and patients with the disease. The antibodies SP-1, CA and PSP occurred earlier in the course of the disease than antibodies to Ro or La. These antibodies were found in 45% of patients meeting the criteria for SS who lacked antibodies to Ro or La. Furthermore, in patients with idiopathic xerostomia and xerophthalmia for less than 2 years, 76% had antibodies to SP-1 and/or CA while only 31% had antibodies to Ro or La. Antibodies to SP-1, CA and PSP may be useful markers for identifying patients with SS at early stages of the disease or those that lack antibodies to either Ro or La. The presence of the antibodies to SP-1, CA and PSP should be correlated with clinical (dry mouth, dry eyes), serological (Ro, La, ULICES, RF) and histological (positive lymphocytic focus scores) findings in establishing a definitive diagnosis for SS. Mejia Burrows et al. (2010). A role of lymphotxin in primary sjogren's syndrome. J Immunol; 185: 6900-4701. Mejia Burrows et al. (2012). Novel autoantibodies in Sjogren's syndrome. Clinical Immunology;145, 251-255. *This test has been developed and performance parameters have been validated by [employer], [employer]. This test has not been approved by the U.S. Food and Drug Administration (FDA); however, US FDA approval is not required for clinical use. It is not intended that clinical diagnosis and patient management decisions be made using these results alone. This test has been validated using serum samples. The freight air brake fitter has not determined the efficacy of this test when performed on CSF, plasma, joint or pleural fluid specimens. The performance characteristics of this test were determined by [employer]. FASTING Blood BLOOD SPECIMEN / Unknown 03/06/2021 12:34 PM ROTARY DRIER OPERATOR 03/06/2021 Narrative Resulting Agency Comment Lab Testing performed at: [facility] [address] [facility] [phone] Lucia Bliss MD LAB - SEROLOGY ORDER ANNALISE [facility] INSURANCE BILL [address] [place] [address] * (ABNORMAL) LIPID PROFILE (03/06/2021 12:34 PM ROTARY DRIER OPERATOR) Cholesterol 177 100 - 199 mg/dL [facility] [...] BLOOD SPECIMEN / Unknown 03/06/2021 12:34 PM ROTARY DRIER OPERATOR 03/06/2021 Narrative Resulting Agency Comment Lab Testing performed at: [facility] [place] [address] [facility] [phone] Brandan Viveros MD LAB - CHEMISTRY OR DERABLES [facility] INSURANCE BILL [address] [place] [address] * XR CHEST PA & LAT (05/12/2020) Anatomical Region Laterality Modality Other Brandan Viveros MD DIAGNOSTIC IMAGING ORDERABLES * MYOSITIS ANTIBODY PANEL COMPREHENSIVE (05/06/2020 11:38 AM ROTARY DRIER OPERATOR) Briana-1 Antibody <20 <20 Units [facility] INSURANCE BILL PL-7 Antibody Negative Negative [facility] INSURANCE BILL PL-12 Antibody Negative Negative [facility] INSURANCE BILL EJ Antibody Negative Negative [facility] INSURANCE BILL OJ Antibody Negative Negative [facility] INSURANCE BILL SRP Antibody Negative Negative [facility] INSURANCE BILL Mi-2 Antibody Negative Negative [facility] INSURANCE BILL TIF1-Gamma Antibody <20 <20 Units [facility] INSURANCE BILL MDA-5 Antibody <20 <20 Units [facility] INSURANCE BILL NXP-2 Antibody <20 <20 [facility] INSURANCE BILL PM/SCL 100 <20 <20 Units [facility] INSURANCE BILL KU Antibody Negative Negative [facility] INSURANCE BILL SS-A 52 Antibody <20 <20 Units [facility] INSURANCE BILL Anti-U1 CIRCULATING NURSE By EIA <20 <20 Units [facility] INSURANCE BILL U2 sn CIRCULATING NURSE Antibody Negative Negative [facility] INSURANCE BILL Fibrillarin (U3 CIRCULATING NURSE) Negative Negative [facility] INSURANCE BILL Comment: Interpretation for Anti-Briana-1, Alom-VOI-1wncjd, Anti-MDA-5, Anti-NXP-2, Anti-PM/Scl-100, Anti-SS-A 52 kD, Anti-U1 CIRCULATING NURSE: Negative: <20 Weak Positive: 20 - 39 Moderate Positive: 40 - 80 Strong Positive: >80 . Blood BLOOD SPECIMEN / Unknown 05/06/2020 11:38 AM ROTARY DRIER OPERATOR 05/06/2020 Narrative [facility] INSURANCE BILL - 05/17/2020 6:08 AM CDT Test(s) 753149-Mpsy-QY-0 Ab (RDL); [id number]-Aerv-VC-31 Ab (RDL); [id number]-Hpao-KK Ab (RDL); [id number]-Yuzd-ON Ab (RDL); [id number]- Anti-SRP Ab (RDL); [id number]-Hbub-Ub-6 Ab (RDL); [id number]- Druk-QUT-4rquai Ab (RDL); [id number]-Mbnk-EBF-7 Ab (CADM-140)(RDL); 509649-Gyfy-EUP-7 (P140) Ab (RDL); [id number]-Wkrl-UA/Scl-100 Ab (RDL); [id number]-Qyrm-Xm Ab (RDL); [id number]-Yflo-GU-O 52kD Ab, IgG (RDL); [id number]- Anti-U3 CIRCULATING NURSE (Fibrillarin)(RDL) was developed and its performance characteristics determined by [employer]. It has not been cleared or approved by the Food and Drug Administration. Resulting Agency Comment Lab Testing performed at: [facility] [address] [place] [phone] Brandan Viveros MD LAB - CHEMISTRY OR DERABLES [facility] INSURANCE BILL [address] [place] [address] * (ABNORMAL) QUANTIFERON TB-GOLD (05/06/2020 11:38 AM ROTARY DRIER OPERATOR) Pathologist [facility] QuantiFERON Incubation Incubation performed. [facility] INSURANCE BILL QuantiFERON Criteria [facility] INSURANCE BILL Comment: The QuantiFERON-TB Gold Plus result is determined by subtracting the Nil value from either TB antigen (Ag) tube. The mitogen tube serves as a control for the test. QuantiFERON TB1 Ag Value 0.81 IU/mL [facility] INSURANCE BILL QuantiFERON TB2 Ag Value 0.05 IU/mL [facility] INSURANCE BILL QuantiFERON Nil Value 0.16 IU/mL [facility] INSURANCE BILL QuantiFERON Mitogen Value >10.00 IU/mL [facility] INSURANCE BILL QuantiFERON-TB Gold Plus Positive(A) Negative [facility] INSURANCE BILL Comment:Chemiluminescence im munoassay methodology Blood BLOOD SPECIMEN / Unknown 05/06/2020 11:38 AM ROTARY DRIER OPERATOR 05/06/2020 Narrative Resulting Agency Comment Lab Testing performed at: [facility] [address] [facility] [phone] Brandan Viveros MD LAB - CHEMISTRY OR DERABLES [facility] INSURANCE BILL [address] [place] [address] * ULICES PANEL COMPREHENSIVE (08/19/2019 3:35 PM CDT) Anti-dsDNA Quantitative 6 0 - 9 IU/mL [facility] INSURANCE BILL Comment: Negative <5 Equivocal 5 - 9 Positive >9 CIRCULATING NURSE Antibody <0.2 0.0 - 0.9 AI [facility] INSURANCE BILL Lazaro (LINA) Antibody <0.2 0.0 - 0.9 AI [facility] INSURANCE BILL Antiscleroderma-70 Antibody <0.2 0.0 - 0.9 AI [facility] INSURANCE BILL Sjogren's Antibodies (SSA) <0.2 0.0 - 0.9 AI [facility] INSURANCE BILL Sjogren's Antibodies (SSB) <0.2 0.0 - 0.9 AI [facility] INSURANCE BILL Antichromatin Antibodies <0.2 0.0 - 0.9 AI [facility] INSURANCE BILL Briana-1 Antibody <0.2 0.0 - 0.9 AI [facility] INSURANCE BILL Centromere B Antibody <0.2 0.0 - 0.9 AI [facility] INSURANCE BILL See Below [facility] INSURANCE BILL Comment: Autoantibody Disease Association Condition Frequency --------- Antinuclear Antibody, SLE, mixed connective Direct (ULICES-D) tissue diseases --------- dsDNA SLE 40 - 60% --------- Chromatin Drug induced SLE 90% SLE 48 - 97% --------- SSA (Ro) SLE 25 - 35% Sjogren's Syndrome 40 - 70% Lupus 100% --------- SSB (La) SLE 10% Sjogren's Syndrome 30% --------- Sm (anti-Lazaro) SLE 15 - 30% --------- CIRCULATING NURSE Mixed Connective Tissue Disease 95% (U1 nRNP, SLE 30 - 50% anti-ribonucleoprotein) Polymyositis and/or Dermatomyositis 20% --------- Scl-70 (antiDNA Scleroderma (diffuse) 20 - 35% topoisomerase) Crest 13% --------- Briana-1 Polymyositis and/or Dermatomyositis 20 - 40% --------- Centromere B Scleroderma - Crest variant 80% FASTING Blood BLOOD SPECIMEN / Unknown 08/19/2019 3:35 PM CDT 08/19/2019 Narrative Resulting Agency Comment Lab Testing performed at: [facility] [address] [facility] [phone] Brandan Viveros MD LAB - SEROLOGY ORD ERABLES [facility] INSURANCE BILL [address] [place] [address] Care Teams Electric Welder Relationship Specialty Start Date End Date Ifeanyi Henderson, JOYCE [address] [place] [address] PCP - General Physician Electric Milkers Installer 12/25/21
--- OUTSIDE RECORDS SUMMARY | 2024-05-11 14:52 | XMS_ITS | Encounter Summary ---
Author Organization [facility] Address [facility] [place] [address] Care Team Providers Care Mold Cutting Machine Operator Name Role Phone Bayron Coronado MD Unavailable [phone] Nancy Fournier HOSPITALITY HOUSEKEEPER Primary Care Provider Unav ailable Jacobo Richardson MD Primary Care Provider Unava ilable None, Provider Primary Care Provider Unavaila ble None, Provider Primary Care Provider Unavaila ble Ifeanyi Henderson PA-C Primary Care Provider [phone] Genie Saunders HISTORIC SITES SUPERVISOR Unavailable [phone] Encounter Details Date Type Department Care Team (Late st Contact Info) Description 01/01/2020 Code Rebel Message Enc [facility] Family & Internal Medicine [address] [address] [employer], [facility] Provider Referral Social History Tobacco Use Types Packs/Day Years [...] Sex Assigned at Female 05/09/2018 11:17 AM FRONT DESK SUPERVISOR Legal Sex Female 12:28 PM CDT Gender Identity Female 05/09/2018 11:17 AM FRONT DESK SUPERVISOR Sexual Orientation Straight 05/09/2018 11 :17 AM FRONT DESK SUPERVISOR Occupation Industry Job Start Date Job [...] Rule Out 10/23/2020 10/23/2020 01/23/2021 7:39 PM FRONT DESK SUPERVISOR COVID-19 Rule Out 10/23/2020 10/23/2020 01/23/2021 7:40 PM FRONT DESK SUPERVISOR COVID-19 Rule Out 10/24/2020 10/24/2020 10/25/2020 12:47 AM CDT COVID-19 Rule Out 12/11/2021 12/11/2021 12/11/2021 7:27 PM CDT COVID-19 Rule Out 05/07/2022 05/07/2022 05/07/2022 1:49 PM FRONT DESK SUPERVISOR COVID-19 Rule Out 04/19/2023 04/19/2023 04/19/2023 9:15 AM FRONT DESK SUPERVISOR COVID-19 Confirmed 04/19/2023 04/19/2023 12:32 AM CDT COVID-19 Rule Out 03/07/2024 03/07/2024 03/07/2024 3:08 PM FRONT DESK SUPERVISOR documented as of this encounter Care Teams Mold Cutting Machine Operator Relationship Specialty Start Date End Date Nancy Fournier NP [facility]. [facility] [address] [place] [address] PCP - General NURSE PRACTITIONER 05/19/18 03/24/20 Jacobo Richardson MD [facility]. [facility] [address] [place] [address] PCP - General INTERNAL MEDICINE 03/25/20 07/05/21 None, Provider, PCP - General 07/06/21 07/06/21 None, Provider, PCP - General 07/30/21 10/12/21 Ifeanyi Henderson PA-C [address] [place] [address] PCP - General PHYSICIAN RN PRACTITIONER 10/13/21 Bayron Coronado MD [facility]. [address] [address] Kun Personal Financial Representative CARDIOVASCULAR DISEASE 08/03/15 Genie Saunders FNP [address] [address] NURSE PRACTITIONER 03/16/24 documented as of this encounter
== END 2024-05-11 12:57 | disposition home or self-care (01) ==
LOC: ANHAUDIO 12:57
PROVIDERS: Visit Provider Otolaryngology Otolaryngology/Facial Plastic Surgery
DX: H91.92 Unspecified hearing loss, left ear (principal); H93.13 Tinnitus, bilateral
CPT/HCPCS: 92557; 92567